=== PATIENT | female | born 1960 | race Caucasian/White ===

== ENCOUNTER 2018-09-08 11:54 | Emergency (ER) | payer OTHER ==
[~2018-09-08] VITALS: Ht 177.8 cm; Wt 82.1 kg
[2018-09-08 12:47] LABS: BASOPHILS ABSOLUTE AUTO 0.03 K/mm3 (0.00-0.23); BASOPHILS PERCENT AUTO 1 % (0-2); EOSINOPHILS ABSOLUTE AUTO 0.31 K/mm3 (0.00-0.68); EOSINOPHILS PERCENT AUTO 6 % (0-6); Hematocrit 39.3 % (33.0-51.0); IMMATURE GRAN ABSOLUTE AUTO 0.01 K/mm3 (0.00-0.10); IMMATURE GRAN PERCENT AUTO 0 % (0-1); LYMPHOCYTES ABSOLUTE AUTO 1.47 K/mm3 (0.84-5.20); LYMPHOCYTES PERCENT AUTO 29 % (21-46); MONOCYTES ABSOLUTE AUTO 0.48 K/mm3 (0.16-1.47); MONOCYTES PERCENT AUTO 10 % (4-13); Mean Corpuscular HGB 31.2 pg (26.0-34.0); Mean Corpuscular HGB Conc 33.1 g/dL (31.5-36.5); Mean Corpuscular Volume 94 fL (80-100); Mean Platelet Volume 9.5 fL (9.1-12.4); NEUTROPHILS ABSOLUTE AUTO 2.75 K/mm3 (1.96-9.15); NEUTROPHILS PERCENT AUTO 55 % (41-73); Platelet Count 226 K/mm3 (150-400); RDW Coefficient Variation 12.6 % (11.7-14.2); Red Blood Cell Count 4.17 M/mm3 (3.80-5.20); White Blood Cell Count 5.05 K/mm3 (4.00-11.30)
[2018-09-08 13:09] LABS: Alanine Aminotransfer (ALT/SGP 104 U/L (12-78); Albumin, Blood 3.7 g/dL (3.4-5.0); Albumin/Globulin Ratio 1.1 (0.8-1.8); Alk Phos 97 U/L (50-136); Anion Gap 8 mmol/L (6-16); Aspartate Aminotrans (AST/SGOT 58 U/L (12-37); Bilirubin, Total 0.4 mg/dL (0.1-1.0); Blood Urea Nitrogen 13 mg/dL (8-24); Bun/Creatinine Ratio 13.7 (12.0-20.0); CO2, Blood 26 mmol/L (21-32); Calcium, Blood 8.6 mg/dL (8.5-10.1); Chloride, Blood 106 mmol/L (98-108); Creatinine, Blood 0.95 mg/dL (0.40-1.00); Globulin, Blood 3.4 g/dL (2.2-4.0); Glomerular Filtration Rate >60 (60-); Glucose, Blood 95 mg/dL (70-99); Potassium, Blood 4.2 mmol/L (3.5-5.5); Sodium, Blood 140 mmol/L (136-145); Total Protein, Blood 7.1 g/dL (6.4-8.2)
[2018-09-08] MEDS ORDERED: Omeprazole20 M1 PO (14:45)
[2018-09-08] MEDS ORDERED: AMIT50 PO (14:45)
[2018-09-08] MEDS ORDERED: WELLBUTRIN (14:46)
[2018-09-08] MEDS ORDERED: MIRALAX17 GM PO (16:17)
[2018-09-08] MEDS ORDERED: Kristalose20 GM PO (16:17)
== END 2018-09-08 16:52 | disposition home or self-care (01) ==
LOC: ER 11:54
PROVIDERS: Physician Assistant
DX: K59.09 Other constipation (principal); Z79.899 Other long term (current) drug therapy; Z87.891 Personal history of nicotine dependence
CPT/HCPCS: 36415; 74018; 80053; 85025; 96374; 99283-25; J2405

== ENCOUNTER 2018-09-16 00:24 | Inpatient (IN) | payer OTHER ==
[~2018-09-16] VITALS: Ht 177.8 cm; Wt 83.2 kg
[~2018-09-16 00:24] MED LIST: AMIT50 PO; Kristalose20 GM PO; MIRALAX17 GM PO; Omeprazole20 M1 PO; WELLBUTRIN
[2018-09-16] MEDS ORDERED: CLON.5 (00:36)
[2018-09-16 00:57] LABS: Hematocrit 31.8 % (33.0-51.0); Hemoglobin 10.9 g/dL (11.5-16.0); Mean Corpuscular HGB 31.5 pg (26.0-34.0); Mean Corpuscular HGB Conc 34.3 g/dL (31.5-36.5); Mean Corpuscular Volume 92 fL (80-100); Mean Platelet Volume 10.4 fL (9.1-12.4); Platelet Count 119 K/mm3 (150-400); RDW Coefficient Variation 13.2 % (11.7-14.2); RDW Standard Deviation 44.7 fL (35.1-46.3); Red Blood Cell Count 3.46 M/mm3 (3.80-5.20)
[2018-09-16 01:18] LABS: Acetaminophen, Random 3.3 ug/mL (10.0-30.0); Alanine Aminotransfer (ALT/SGP 63 U/L (12-78); Albumin, Blood 2.3 g/dL (3.4-5.0); Albumin/Globulin Ratio 0.5 (0.8-1.8); Alk Phos 154 U/L (50-136); Anion Gap 13 mmol/L (6-16); Aspartate Aminotrans (AST/SGOT 45 U/L (12-37); Blood Urea Nitrogen 56 mg/dL (8-24); Bun/Creatinine Ratio 15.1 (12.0-20.0); CO2, Blood 20 mmol/L (21-32); Calcium, Blood 7.8 mg/dL (8.5-10.1); Chloride, Blood 94 mmol/L (98-108); Creatinine, Blood 3.72 mg/dL (0.40-1.00); Ethanol (Alcohol), Blood, Med <3 mg/dL; Globulin, Blood 4.2 g/dL (2.2-4.0); Glomerular Filtration Rate 13 (60-); Glucose, Blood 95 mg/dL (70-99); Potassium, Blood 3.8 mmol/L (3.5-5.5); Salicylate 3.8 mg/dL (2.8-20.0); Sodium, Blood 127 mmol/L (136-145); Total Protein, Blood 6.5 g/dL (6.4-8.2)
[2018-09-16 01:20] LABS: BAND PERCENT MAN 4 % (0-8); BASOPHILS PERCENT MAN 0 % (0-2); EOSINOPHILS PERCENT MAN 1 % (0-6); LYMPHOCYTES ABSOLUTE MAN 0.31 K/mm3 (0.84-5.20); LYMPHOCYTES PERCENT MAN 3 % (21-46); MONOCYTES ABSOLUTE MAN 0.84 K/mm3 (0.16-1.47); MONOCYTES PERCENT MAN 8 % (4-13); NEUTROPHILS ABSOLUTE MAN 9.32 K/mm3 (1.96-9.15); SEG NEUTROPHILS PERCENT MAN 84 % (41-73); TOTAL CELLS COUNTED 100
[2018-09-16 02:12] LABS: Source, Urine Clean Catch
[2018-09-16 02:15] LABS: Appearance, Urine Hazy (Clear); Bilirubin, Urine Neg (Neg); Blood, Urine 3+ (Neg); Color, Urine Yellow (P-Yellow); Glucose Qualitative, Urine Neg (Neg); Ketones, Urine Neg (Neg); Leukocyte Esterase, Urine 3+ (Neg); Nitrite, Urine Neg (Neg); Protein, Urine 3+ (Neg); Urobilinogen, Urine 1+ (Normal)
[2018-09-16 02:24] LABS: Amorphous Heavy (0-Heavy); Bacteria Few /hpf; Red Blood Cells, Urine 0-2 /hpf (0-2); Squamous Epithelial Cells Not Seen /hpf (Few); White Blood Cells, Urine 25-50 /hpf (0-5)
[2018-09-16 02:26] LABS: U Amphetamine Screen Not Detected; U Barbituate Screen Not Detected; U Benzodiazapine Screen Not Detected; U Buprenorphine Screen Not Detected; U Cannabinoids Screen Not Detected; U Cocaine Screen Not Detected; U Methadone Screen Not Detected; U Methamphetamine Screen Not Detected; U Opiates Screen Not Detected; U Oxycodone Screen Not Detected; U Phencyclidine Screen Not Detected; U Propoxyphene Screen Not Detected
[2018-09-16 04:24] LABS: Hemoglobin 11.1 g/dL (11.5-16.0); Mean Corpuscular HGB 31.5 pg (26.0-34.0); Mean Corpuscular HGB Conc 33.6 g/dL (31.5-36.5); Mean Corpuscular Volume 94 fL (80-100); Mean Platelet Volume 10.5 fL (9.1-12.4); Platelet Count 119 K/mm3 (150-400); RDW Coefficient Variation 13.5 % (11.7-14.2); RDW Standard Deviation 46.3 fL (35.1-46.3); Red Blood Cell Count 3.52 M/mm3 (3.80-5.20); White Blood Cell Count 8.42 K/mm3 (4.00-11.30)
[2018-09-16 04:36] LABS: International Normalized Ratio 1.11; Prothrombin Time Results 11.7 Sec (9.7-11.5)
[2018-09-16 04:42] LABS: Albumin, Blood 2.5 g/dL (3.4-5.0); Albumin/Globulin Ratio 0.6 (0.8-1.8); Bun/Creatinine Ratio 15.2 (12.0-20.0); Creatinine, Blood 3.75 mg/dL (0.40-1.00); Globulin, Blood 4.4 g/dL (2.2-4.0); Potassium, Blood 3.7 mmol/L (3.5-5.5); Total Protein, Blood 6.9 g/dL (6.4-8.2)
[2018-09-16 09:20] LABS: Magnesium, Blood 2.1 mg/dL (1.6-2.4)
[2018-09-16 09:25] LABS: Troponin I <0.015 ng/mL (0.000-0.040)
[2018-09-16 15:50] LABS: Albumin, Blood 2.2 g/dL (3.4-5.0); Anion Gap 13 mmol/L (6-16); Blood Urea Nitrogen 58 mg/dL (8-24); Bun/Creatinine Ratio 15.6 (12.0-20.0); CO2, Blood 18 mmol/L (21-32); Calcium, Blood 7.7 mg/dL (8.5-10.1); Chloride, Blood 99 mmol/L (98-108); Creatinine, Blood 3.71 mg/dL (0.40-1.00); Glomerular Filtration Rate 13 (60-); Glucose, Blood 67 mg/dL (70-99); Phosphorus, Blood 3.6 mg/dL (2.5-4.9); Potassium, Blood 4.2 mmol/L (3.5-5.5); Sodium, Blood 130 mmol/L (136-145)
[2018-09-17 04:21] LABS: BASOPHILS ABSOLUTE AUTO 0.02 K/mm3 (0.00-0.23); BASOPHILS PERCENT AUTO 0 % (0-2); EOSINOPHILS ABSOLUTE AUTO 0.16 K/mm3 (0.00-0.68); EOSINOPHILS PERCENT AUTO 2 % (0-6); Hematocrit 31.3 % (33.0-51.0); Hemoglobin 10.4 g/dL (11.5-16.0); IMMATURE GRAN ABSOLUTE AUTO 0.32 K/mm3 (0.00-0.10); IMMATURE GRAN PERCENT AUTO 4 % (0-1); LYMPHOCYTES ABSOLUTE AUTO 0.42 K/mm3 (0.84-5.20); LYMPHOCYTES PERCENT AUTO 5 % (21-46); MONOCYTES PERCENT AUTO 7 % (4-13); Mean Corpuscular HGB 30.9 pg (26.0-34.0); Mean Corpuscular HGB Conc 33.2 g/dL (31.5-36.5); Mean Corpuscular Volume 93 fL (80-100); Mean Platelet Volume 10.2 fL (9.1-12.4); NEUTROPHILS ABSOLUTE AUTO 7.62 K/mm3 (1.96-9.15); NEUTROPHILS PERCENT AUTO 83 % (41-73); Platelet Count 127 K/mm3 (150-400); RDW Coefficient Variation 13.8 % (11.7-14.2); RDW Standard Deviation 46.6 fL (35.1-46.3); Red Blood Cell Count 3.37 M/mm3 (3.80-5.20); White Blood Cell Count 9.14 K/mm3 (4.00-11.30)
[2018-09-17 04:43] LABS: Albumin, Blood 2.1 g/dL (3.4-5.0); Albumin/Globulin Ratio 0.6 (0.8-1.8); Bilirubin, Total 0.9 mg/dL (0.1-1.0); Bun/Creatinine Ratio 16.3 (12.0-20.0); Calcium, Blood 7.4 mg/dL (8.5-10.1); Creatinine, Blood 3.63 mg/dL (0.40-1.00); Globulin, Blood 3.7 g/dL (2.2-4.0); Potassium, Blood 3.3 mmol/L (3.5-5.5); Total Protein, Blood 5.8 g/dL (6.4-8.2)
[2018-09-17 07:14] LABS: HBSAG SCREEN Negative (Negative); HEP A AB, IGM Negative (Negative); HEP B CORE AB, IGM Negative (Negative); HEP B CORE AB, TOT Negative (Negative); HEP C VIRUS AB >11.0 (0.0-0.9)
[2018-09-18 05:20] LABS: Bun/Creatinine Ratio 15.4 (12.0-20.0); Calcium, Blood 7.6 mg/dL (8.5-10.1); Creatinine, Blood 3.58 mg/dL (0.40-1.00); Potassium, Blood 3.4 mmol/L (3.5-5.5)
[2018-09-19 05:26] LABS: BASOPHILS ABSOLUTE AUTO 0.05 K/mm3 (0.00-0.23); BASOPHILS PERCENT AUTO 0 % (0-2); EOSINOPHILS ABSOLUTE AUTO 0.12 K/mm3 (0.00-0.68); EOSINOPHILS PERCENT AUTO 1 % (0-6); Hematocrit 29.2 % (33.0-51.0); Hemoglobin 9.9 g/dL (11.5-16.0); IMMATURE GRAN ABSOLUTE AUTO 0.69 K/mm3 (0.00-0.10); IMMATURE GRAN PERCENT AUTO 5 % (0-1); LYMPHOCYTES ABSOLUTE AUTO 0.91 K/mm3 (0.84-5.20); LYMPHOCYTES PERCENT AUTO 6 % (21-46); MONOCYTES ABSOLUTE AUTO 0.81 K/mm3 (0.16-1.47); MONOCYTES PERCENT AUTO 5 % (4-13); Mean Corpuscular HGB 31.1 pg (26.0-34.0); Mean Corpuscular HGB Conc 33.9 g/dL (31.5-36.5); Mean Corpuscular Volume 92 fL (80-100); Mean Platelet Volume 9.5 fL (9.1-12.4); NEUTROPHILS ABSOLUTE AUTO 12.75 K/mm3 (1.96-9.15); NEUTROPHILS PERCENT AUTO 83 % (41-73); Platelet Count 190 K/mm3 (150-400); RDW Coefficient Variation 14.2 % (11.7-14.2); RDW Standard Deviation 48.3 fL (35.1-46.3); Red Blood Cell Count 3.18 M/mm3 (3.80-5.20); White Blood Cell Count 15.33 K/mm3 (4.00-11.30)
[2018-09-19 05:38] LABS: Bun/Creatinine Ratio 14.6 (12.0-20.0); Calcium, Blood 7.7 mg/dL (8.5-10.1); Creatinine, Blood 3.62 mg/dL (0.40-1.00)
[2018-09-19 16:38] LABS: Anion Gap 11 mmol/L (6-16); Blood Urea Nitrogen 48 mg/dL (8-24); Bun/Creatinine Ratio 14.1 (12.0-20.0); CO2, Blood 18 mmol/L (21-32); Calcium, Blood 7.6 mg/dL (8.5-10.1); Chloride, Blood 106 mmol/L (98-108); Creatinine, Blood 3.41 mg/dL (0.40-1.00); Glomerular Filtration Rate 15 (60-); Glucose, Blood 77 mg/dL (70-99); Phosphorus, Blood 3.9 mg/dL (2.5-4.9); Potassium, Blood 3.7 mmol/L (3.5-5.5); Sodium, Blood 135 mmol/L (136-145)
[2018-09-20 05:11] LABS: BASOPHILS ABSOLUTE AUTO 0.05 K/mm3 (0.00-0.23); BASOPHILS PERCENT AUTO 0 % (0-2); EOSINOPHILS ABSOLUTE AUTO 0.18 K/mm3 (0.00-0.68); EOSINOPHILS PERCENT AUTO 1 % (0-6); Hematocrit 28.9 % (33.0-51.0); Hemoglobin 9.6 g/dL (11.5-16.0); IMMATURE GRAN ABSOLUTE AUTO 0.73 K/mm3 (0.00-0.10); IMMATURE GRAN PERCENT AUTO 5 % (0-1); LYMPHOCYTES ABSOLUTE AUTO 1.19 K/mm3 (0.84-5.20); LYMPHOCYTES PERCENT AUTO 8 % (21-46); MONOCYTES ABSOLUTE AUTO 0.74 K/mm3 (0.16-1.47); MONOCYTES PERCENT AUTO 5 % (4-13); Mean Corpuscular HGB 30.8 pg (26.0-34.0); Mean Corpuscular HGB Conc 33.2 g/dL (31.5-36.5); Mean Corpuscular Volume 93 fL (80-100); Mean Platelet Volume 9.4 fL (9.1-12.4); NEUTROPHILS ABSOLUTE AUTO 12.02 K/mm3 (1.96-9.15); NEUTROPHILS PERCENT AUTO 81 % (41-73); Platelet Count 228 K/mm3 (150-400); RDW Coefficient Variation 14.6 % (11.7-14.2); RDW Standard Deviation 49.5 fL (35.1-46.3); Red Blood Cell Count 3.12 M/mm3 (3.80-5.20); White Blood Cell Count 14.91 K/mm3 (4.00-11.30)
[2018-09-20 06:20] LABS: Albumin, Blood 1.8 g/dL (3.4-5.0); Anion Gap 11 mmol/L (6-16); Blood Urea Nitrogen 47 mg/dL (8-24); CO2, Blood 18 mmol/L (21-32); CPK Creatine Kinase 17 U/L (26-193); Calcium, Blood 7.6 mg/dL (8.5-10.1); Chloride, Blood 111 mmol/L (98-108); Glucose, Blood 94 mg/dL (70-99); Magnesium, Blood 2.1 mg/dL (1.6-2.4); Phosphorus, Blood 4.1 mg/dL (2.5-4.9); Potassium, Blood 3.6 mmol/L (3.5-5.5); Sodium, Blood 140 mmol/L (136-145)
[2018-09-20 06:54] LABS: Bun/Creatinine Ratio 13.9 (12.0-20.0); Creatinine, Blood 3.38 mg/dL (0.40-1.00); Glomerular Filtration Rate 15 (60-)
[2018-09-21 05:36] LABS: BASOPHILS ABSOLUTE AUTO 0.03 K/mm3 (0.00-0.23); BASOPHILS PERCENT AUTO 0 % (0-2); EOSINOPHILS ABSOLUTE AUTO 0.06 K/mm3 (0.00-0.68); EOSINOPHILS PERCENT AUTO 0 % (0-6); Hematocrit 27.5 % (33.0-51.0); IMMATURE GRAN ABSOLUTE AUTO 0.68 K/mm3 (0.00-0.10); IMMATURE GRAN PERCENT AUTO 5 % (0-1); LYMPHOCYTES ABSOLUTE AUTO 1.19 K/mm3 (0.84-5.20); LYMPHOCYTES PERCENT AUTO 8 % (21-46); MONOCYTES ABSOLUTE AUTO 0.45 K/mm3 (0.16-1.47); MONOCYTES PERCENT AUTO 3 % (4-13); Mean Corpuscular HGB 30.4 pg (26.0-34.0); Mean Corpuscular HGB Conc 32.7 g/dL (31.5-36.5); Mean Corpuscular Volume 93 fL (80-100); Mean Platelet Volume 9.3 fL (9.1-12.4); NEUTROPHILS ABSOLUTE AUTO 11.94 K/mm3 (1.96-9.15); NEUTROPHILS PERCENT AUTO 83 % (41-73); Platelet Count 234 K/mm3 (150-400); RDW Coefficient Variation 14.6 % (11.7-14.2); RDW Standard Deviation 49.8 fL (35.1-46.3); Red Blood Cell Count 2.96 M/mm3 (3.80-5.20); White Blood Cell Count 14.35 K/mm3 (4.00-11.30)
[2018-09-21 06:04] LABS: Albumin, Blood 1.8 g/dL (3.4-5.0); Anion Gap 11 mmol/L (6-16); Blood Urea Nitrogen 43 mg/dL (8-24); CO2, Blood 18 mmol/L (21-32); Calcium, Blood 7.3 mg/dL (8.5-10.1); Chloride, Blood 110 mmol/L (98-108); Creatinine, Blood 3.08 mg/dL (0.40-1.00); Glomerular Filtration Rate 17 (60-); Glucose, Blood 88 mg/dL (70-99); Phosphorus, Blood 4.7 mg/dL (2.5-4.9); Potassium, Blood 3.8 mmol/L (3.5-5.5); Sodium, Blood 139 mmol/L (136-145)
[2018-09-21 09:23] LABS: Protein, Urine Quantitative 15.9 mg/dL (0.0-11.9)
[2018-09-21] MEDS ORDERED: ACET325 PO (13:22)
[2018-09-21] MEDS ORDERED: BISA10S PR (13:36)
[2018-09-21] MEDS ORDERED: OYSTER SHELL C1 EAC3 PO (13:41)
[2018-09-21] MEDS ORDERED: CEFP200 PO (13:42)
[2018-09-21] MEDS ORDERED: Colace100 MG PO (13:42)
[2018-09-21] MEDS ORDERED: Amitiza24 MCG PO (13:44)
[2018-09-21] MEDS ORDERED: ONDA4ODT MM (13:46)
[2018-09-21] MEDS ORDERED: MIRALAX17 GM PO (13:47)
[2018-09-21] MEDS ORDERED: AZIT500 PO (13:48)
[2018-09-21] MEDS ORDERED: PRED20 PO (13:48)
[2018-09-21] MEDS ORDERED: TRAM50 PO (13:49)
== END 2018-09-21 16:15 | disposition home or self-care (01) | DRG 682 ==
LOC: ER 00:24 → MEDS 02:35 → ICUW 02:35 → MEDS 09-17 10:55
PROVIDERS: Emergency Medicine; Family Medicine; Hospitalist; Internal Medicine Gastroenterology; Internal Medicine Nephrology; ADMIT Internal Medicine
PROC: 0DJD8ZZ Inspection of Lower Intestinal Tract, Via Natural or Artificial Opening Endoscopic (ICD-10-PCS; principal; 2018-09-17 16:00)
DX: N17.0 Acute kidney failure with tubular necrosis (principal); G92 Toxic encephalopathy; J18.9 Pneumonia, unspecified organism; N39.0 Urinary tract infection, site not specified; Q43.8 Other specified congenital malformations of intestine; E87.1 Hypo-osmolality and hyponatremia; E87.2 Acidosis; E86.0 Dehydration; K21.9 Gastro-esophageal reflux disease without esophagitis; K59.00 Constipation, unspecified; K76.0 Fatty (change of) liver, not elsewhere classified; R09.02 Hypoxemia; E88.09 Other disorders of plasma-protein metabolism, not elsewhere classified; Z87.891 Personal history of nicotine dependence; F32.9 Major depressive disorder, single episode, unspecified; R51 Headache; K62.3 Rectal prolapse; G47.00 Insomnia, unspecified; E86.9 Volume depletion, unspecified; B96.20 Unspecified Escherichia coli [E. coli] as the cause of diseases classified elsewhere; D64.9 Anemia, unspecified; Z79.1 Long term (current) use of non-steroidal anti-inflammatories (NSAID); N18.9 Chronic kidney disease, unspecified
CPT/HCPCS: 36415; 51702; 71045; 71046; 74018; 74176; 80048; 80053; 80069; 80074; 81001; 81025; 81050; 82140; 82550; 82947; 83605; 83690; 83735; 84156; 84439; 84443; 84484; 84550; 85014; 85018; 85025; 85027; 85610; 86317; 86704; 86708; 86803; 87070; 87077; 87086; 87147; 87186; 87205; 87340; 90686; 93005; 93010; 99285-25; G0008; G0480; J0456; J0696; J0881; J1650; J1956; J2405; J3010; J3480; J7030; J7050; J7120; P9046

== ENCOUNTER → 2018-09-28 | Outpatient (CLI) | payer OTHER ==
[~2018-09-28] MED LIST changes: +ACET325 PO; +AZIT500 PO; +Amitiza24 MCG PO; +BISA10S PR; +CEFP200 PO; +CLON.5; +Colace100 MG PO; +ONDA4ODT MM; +OYSTER SHELL C1 EAC3 PO; +PRED20 PO; +TRAM50 PO
[2018-09-28 11:07] LABS: Protein, Urine Quantitative 14.4 mg/dL (0.0-11.9)
== END | disposition home or self-care (01) ==
LOC: LAB SHORT 09:46 → LAB 09:46 → LAB FUT 09-24 14:55
PROVIDERS: Internal Medicine Nephrology
DX: N18.4 Chronic kidney disease, stage 4 (severe) (principal); D63.1 Anemia in chronic kidney disease; N25.81 Secondary hyperparathyroidism of renal origin; E55.9 Vitamin D deficiency, unspecified; E78.00 Pure hypercholesterolemia, unspecified; D51.8 Other vitamin B12 deficiency anemias; D52.8 Other folate deficiency anemias; D50.9 Iron deficiency anemia, unspecified; R76.9 Abnormal immunological finding in serum, unspecified; R94.5 Abnormal results of liver function studies; R94.6 Abnormal results of thyroid function studies
CPT/HCPCS: 81050; 82043; 82570; 84156

== ENCOUNTER 2018-10-03 14:54 | Emergency (ER) | payer OTHER ==
[~2018-10-03] VITALS: Ht 177.8 cm; Wt 81.7 kg
[2018-10-03 16:29] LABS: BASOPHILS ABSOLUTE AUTO 0.05 K/mm3 (0.00-0.23); BASOPHILS PERCENT AUTO 1 % (0-2); EOSINOPHILS ABSOLUTE AUTO 0.12 K/mm3 (0.00-0.68); EOSINOPHILS PERCENT AUTO 2 % (0-6); Hematocrit 40.1 % (33.0-51.0); Hemoglobin 12.4 g/dL (11.5-16.0); IMMATURE GRAN ABSOLUTE AUTO 0.03 K/mm3 (0.00-0.10); IMMATURE GRAN PERCENT AUTO 1 % (0-1); LYMPHOCYTES ABSOLUTE AUTO 2.75 K/mm3 (0.84-5.20); LYMPHOCYTES PERCENT AUTO 44 % (21-46); MONOCYTES ABSOLUTE AUTO 0.64 K/mm3 (0.16-1.47); MONOCYTES PERCENT AUTO 10 % (4-13); Mean Corpuscular HGB 30.3 pg (26.0-34.0); Mean Corpuscular HGB Conc 30.9 g/dL (31.5-36.5); Mean Platelet Volume 8.8 fL (9.1-12.4); NEUTROPHILS ABSOLUTE AUTO 2.61 K/mm3 (1.96-9.15); NEUTROPHILS PERCENT AUTO 42 % (41-73); Platelet Count 309 K/mm3 (150-400); RDW Coefficient Variation 14.1 % (11.7-14.2); Red Blood Cell Count 4.09 M/mm3 (3.80-5.20)
[2018-10-03 16:32] LABS: Mean Corpuscular Volume 98 fL (80-100)
[2018-10-03 16:36] LABS: Albumin, Blood 3.6 g/dL (3.4-5.0); Albumin/Globulin Ratio 0.8 (0.8-1.8); Bilirubin, Total 0.4 mg/dL (0.1-1.0); Bun/Creatinine Ratio 12.9 (12.0-20.0); Calcium, Blood 8.9 mg/dL (8.5-10.1); Creatinine, Blood 1.71 mg/dL (0.40-1.00); Globulin, Blood 4.8 g/dL (2.2-4.0); Potassium, Blood 3.6 mmol/L (3.5-5.5); Total Protein, Blood 8.4 g/dL (6.4-8.2)
[2018-10-03 16:59] LABS: Source, Urine Clean Catch
[2018-10-03 17:04] LABS: Appearance, Urine Clear (Clear); Bilirubin, Urine Neg (Neg); Blood, Urine Neg (Neg); Color, Urine Yellow (P-Yellow); Glucose Qualitative, Urine Neg (Neg); Ketones, Urine Neg (Neg); Leukocyte Esterase, Urine 1+ (Neg); Nitrite, Urine Neg (Neg); Protein, Urine Neg (Neg); Specific Gravity, Urine 1.015 (1.003-1.022); Urobilinogen, Urine NORM (Normal)
[2018-10-03 17:16] LABS: Red Blood Cells, Urine Not Seen /hpf (0-2); White Blood Cells, Urine 0-2 /hpf (0-5)
[2018-10-03 17:17] LABS: Bacteria Not Seen /hpf; Squamous Epithelial Cells Few /hpf (Few)
== END 2018-10-03 18:30 | disposition home or self-care (01) ==
LOC: ER 14:54
PROVIDERS: Physician Assistant
DX: R55 Syncope and collapse (principal); Z79.899 Other long term (current) drug therapy; Z87.891 Personal history of nicotine dependence
CPT/HCPCS: 36415; 71046; 80053; 81001; 84484; 85025; 87077; 87086; 87186; 93005; 93010; 96360; 96361; 99284-25; J7030

== ENCOUNTER 2018-10-22 13:53 | Day surgery (SDC) | payer OTHER ==
[2018-10-23] MEDS ORDERED: OXYC5 PO (13:50)
[2018-10-23] MEDS ORDERED: Budeprion Xl300 MG (13:50)
[2018-10-23] MEDS ORDERED: CALC.25 PO (13:51)
[2018-10-23] MEDS ORDERED: MOTION RELIEF25 MG PO (13:51)
== END 2018-10-22 16:20 | disposition home or self-care (01) ==
LOC: ATC 13:53
DX: I95.9 Hypotension, unspecified (principal); R55 Syncope and collapse; K59.09 Other constipation; M54.12 Radiculopathy, cervical region; M79.12 Myalgia of auxiliary muscles, head and neck; N18.9 Chronic kidney disease, unspecified; E83.119 Hemochromatosis, unspecified; R09.02 Hypoxemia; G47.00 Insomnia, unspecified; Z79.899 Other long term (current) drug therapy; E87.6 Hypokalemia; E87.1 Hypo-osmolality and hyponatremia; Z87.891 Personal history of nicotine dependence
CPT/HCPCS: 96360; 96361; J7042

== ENCOUNTER 2018-10-23 13:09 | Emergency (ER) | payer OTHER ==
[~2018-10-23] VITALS: Ht 177.8 cm; Wt 80.3 kg
[2018-10-23] MEDS ORDERED: Budeprion Xl300 MG (13:50)
[2018-10-23] MEDS ORDERED: OXYC5 PO (13:50)
[2018-10-23] MEDS ORDERED: CALC.25 PO (13:51)
[2018-10-23] MEDS ORDERED: MOTION RELIEF25 MG PO (13:51)
[2018-10-23 15:59] LABS: BASOPHILS ABSOLUTE AUTO 0.05 K/mm3 (0.00-0.23); BASOPHILS PERCENT AUTO 1 % (0-2); EOSINOPHILS ABSOLUTE AUTO 0.19 K/mm3 (0.00-0.68); EOSINOPHILS PERCENT AUTO 2 % (0-6); Hematocrit 32.8 % (33.0-51.0); Hemoglobin 10.6 g/dL (11.5-16.0); IMMATURE GRAN ABSOLUTE AUTO 0.06 K/mm3 (0.00-0.10); IMMATURE GRAN PERCENT AUTO 1 % (0-1); LYMPHOCYTES ABSOLUTE AUTO 1.69 K/mm3 (0.84-5.20); LYMPHOCYTES PERCENT AUTO 18 % (21-46); MONOCYTES ABSOLUTE AUTO 0.56 K/mm3 (0.16-1.47); MONOCYTES PERCENT AUTO 6 % (4-13); Mean Corpuscular HGB 29.9 pg (26.0-34.0); Mean Corpuscular HGB Conc 32.3 g/dL (31.5-36.5); Mean Corpuscular Volume 93 fL (80-100); Mean Platelet Volume 9.7 fL (9.1-12.4); NEUTROPHILS ABSOLUTE AUTO 6.71 K/mm3 (1.96-9.15); NEUTROPHILS PERCENT AUTO 73 % (41-73); Platelet Count 207 K/mm3 (150-400); RDW Coefficient Variation 13.2 % (11.7-14.2); RDW Standard Deviation 45.2 fL (35.1-46.3); Red Blood Cell Count 3.54 M/mm3 (3.80-5.20); White Blood Cell Count 9.26 K/mm3 (4.00-11.30)
[2018-10-23 16:23] LABS: Albumin, Blood 3.3 g/dL (3.4-5.0); Albumin/Globulin Ratio 0.8 (0.8-1.8); Bilirubin, Total 0.4 mg/dL (0.1-1.0); Bun/Creatinine Ratio 11.9 (12.0-20.0); Calcium, Blood 8.2 mg/dL (8.5-10.1); Creatinine, Blood 1.26 mg/dL (0.40-1.00); Globulin, Blood 3.9 g/dL (2.2-4.0); Potassium, Blood 3.9 mmol/L (3.5-5.5); Total Protein, Blood 7.2 g/dL (6.4-8.2)
== END 2018-10-23 17:09 | disposition home or self-care (01) ==
LOC: ER 13:09
PROVIDERS: Physician Assistant
DX: R55 Syncope and collapse (principal); Z79.899 Other long term (current) drug therapy; J44.9 Chronic obstructive pulmonary disease, unspecified; Z87.891 Personal history of nicotine dependence
CPT/HCPCS: 80053; 85025; 93005; 93010; 99284-25

== ENCOUNTER 2018-10-24 09:55 | Day surgery (SDC) | payer OTHER ==
[~2018-10-24 09:55] MED LIST changes: +Budeprion Xl300 MG; +CALC.25 PO; +MOTION RELIEF25 MG PO; +OXYC5 PO
== END 2018-10-24 12:03 | disposition home or self-care (01) ==
LOC: ATC 09:55
DX: I95.9 Hypotension, unspecified (principal); R55 Syncope and collapse; K59.09 Other constipation; M54.12 Radiculopathy, cervical region; M79.12 Myalgia of auxiliary muscles, head and neck; N18.9 Chronic kidney disease, unspecified; E83.119 Hemochromatosis, unspecified; R09.02 Hypoxemia; G47.00 Insomnia, unspecified; Z79.899 Other long term (current) drug therapy; E87.6 Hypokalemia; E87.1 Hypo-osmolality and hyponatremia; Z87.891 Personal history of nicotine dependence
CPT/HCPCS: 96360; 96361; J7042

== ENCOUNTER → 2018-11-26 | Outpatient (CLI) | payer OTHER | END | disposition home or self-care (01) | LOC: LAB SHORT 17:13 → LAB 17:13 | DX: N18.9 Chronic kidney disease, unspecified (principal) | CPT/HCPCS: 87077; 87086; 87186 ==

== ENCOUNTER → 2018-12-16 | Outpatient (CLI) | payer OTHER | END | disposition home or self-care (01) | LOC: LAB 18:07 → LAB SHORT 18:07 | DX: N39.0 Urinary tract infection, site not specified (principal); N18.9 Chronic kidney disease, unspecified; N08 Glomerular disorders in diseases classified elsewhere | CPT/HCPCS: 87086 ==

== ENCOUNTER → 2019-01-13 | Outpatient (CLI) | payer OTHER ==
[2019-01-17 15:07] LABS: HPV 16 Negative (Negative); HPV 18 Negative (Negative); HPV OTHER HR TYPES Negative (Negative)
== END | disposition home or self-care (01) ==
LOC: LAB SHORT 10:20 → LAB 10:20
PROVIDERS: Nurse Practitioner Family
DX: Z01.419 Encounter for gynecological examination (general) (routine) without abnormal findings (principal)
CPT/HCPCS: 87624; G0123

== ENCOUNTER → 2019-01-17 | Outpatient (CLI) | payer OTHER | END | disposition home or self-care (01) | LOC: LAB 16:14 → LAB SHORT 16:14 | DX: N39.0 Urinary tract infection, site not specified (principal) | CPT/HCPCS: 87086 ==

== ENCOUNTER → 2019-07-01 | Outpatient (CLI) | payer OTHER | END | disposition home or self-care (01) | LOC: LAB 12:00 → LAB SHORT 12:00 | DX: K12.1 Other forms of stomatitis (principal) | CPT/HCPCS: 87070; 87075; 87077; 87186; 87205 ==

== ENCOUNTER 2020-01-12 12:01 | Emergency (ER) | payer OTHER ==
[~2020-01-12] VITALS: Ht 167.6 cm; Wt 68.0 kg
[2020-01-12] MEDS ORDERED: MIDO5 PO (12:20)
[2020-01-12] MEDS ORDERED: OXYC5 PO (12:20)
[2020-01-12] MEDS ORDERED: BACL10 PO (12:21)
[2020-01-12] MEDS ORDERED: Flonase 0.05% N16 GM (12:22)
[2020-01-17 08:30] LABS: Calcium, Ionized (POC) 1.17 mmol/L (1.10-1.46); Chloride (POC) 106 mmol/L (98-108); Creatinine (POC) 1.2 mg/dL (0.6-1.0); Glucose (ISTAT POC) 101 mg/dL (70-99); Hemoglobin (POC) 12.2 g/dL (12.0-16.0); Potassium (POC) 3.4 mmol/L (3.5-5.5); Sodium (POC) 140 mmol/L (135-148); Total CO2 (POC) 23 mmol/L (21-32)
== END 2020-01-12 16:57 | disposition home or self-care (01) ==
LOC: ER 12:01
PROVIDERS: Emergency Medicine
DX: R41.82 Altered mental status, unspecified (principal); M10.9 Gout, unspecified; K21.9 Gastro-esophageal reflux disease without esophagitis; N19 Unspecified kidney failure; Z87.01 Personal history of pneumonia (recurrent); Z79.899 Other long term (current) drug therapy; Z87.891 Personal history of nicotine dependence
CPT/HCPCS: 80047; 85014; 96361; 96374; 96375; 99284-25; J1200; J2550; J7030

== ENCOUNTER 2023-01-20 08:07 | Day surgery (SDC) | payer OTHER ==
[~2023-01-20] VITALS: Ht 177.8 cm; Wt 68.9 kg
[2023-01-20] VITALS (17 sets, daily range): BP systolic 112–154; BP diastolic 66–121
[~2023-01-20 08:07] MED LIST changes: +BACL10 PO; +DEXT10ER PO; +FLUDROCORTISON0.1 M1 PO; +Flonase 0.05% N16 GM; +LISI20 PO; +Loratadine10 MG PO; +METO25ER PO; +MIDO5 PO; +NARCAN4 M1; +OXYC10ER PO; +PANT40 PO; +QUET100 PO; +ROSU10TA PO
--- NOTE | 2023-01-20 08:43 | NUR ---
History, Chart, Medications and Allergies reviewed before start of procedure. Patient States Post-Procedure ride home has been arranged.
--- NOTE | 2023-01-20 09:09 | NUR ---
01/20/23 0909 Lea Fletcher HISTORY, CHART, MEDICATIONS AND ALLERGIES REVIEWED BEFORE START OF PROCEDURE. PATIENT CONFIRMS NPO STATUS AND AGREES WITH SCHEDULED PROCEDURE. 3-LEAD EKG REVIEWED WITH PHYSICIAN PRIOR TO START OF PROCEDURE. MONITOR INTACT WITH CONTINUOUS PULSE OXIMETRY,CAPNOGRAPHY, 3-LEAD EKG, INTERMITTENT BP. SUPPLEMENTAL O2 TO BE TITRATED THROUGHOUT PROCEDURE TO MAINTAIN O2 SATURATION ABOVE 90%. PATIENT DETERMINED TO BE ASA APPROPRIATE FOR PROPOFOL SEDATION PRIOR TO START OF PROCEDURE BY .
--- NOTE | 2023-01-20 09:35 | NUR ---
Discharge instructions reviewed with patient. Patient verbalizes understanding. Copy given to patient to take home. Discharged via wheelchair to private car for ride home.
== END 2023-01-20 09:35 | disposition home or self-care (01) ==
LOC: ORSCMMR 08:07 → ORD 09:00 → ORSCMMR 09:00
PROVIDERS: Internal Medicine Gastroenterology
PROC: 0DBM8ZX Excision of Descending Colon, Via Natural or Artificial Opening Endoscopic, Diagnostic (ICD-10-PCS; principal; 2023-01-20 09:00)
DX: K62.5 Hemorrhage of anus and rectum (principal); R19.5 Other fecal abnormalities; K63.5 Polyp of colon; K63.89 Other specified diseases of intestine; K59.09 Other constipation; G47.30 Sleep apnea, unspecified; E87.1 Hypo-osmolality and hyponatremia; I10 Essential (primary) hypertension; K21.9 Gastro-esophageal reflux disease without esophagitis; Z79.899 Other long term (current) drug therapy
CPT/HCPCS: 88305; J0461; J2704; J7120

== ENCOUNTER 2024-09-20 18:48 | Inpatient (IN) | payer OTHER ==
[~2024-09-20] VITALS: Ht 177.8 cm; Wt 64.5 kg
[~2024-09-20 18:48] MED LIST changes: -ANORO ELLIPTA1 EAC1 INH; -Amphetamine Sal20 MG PO; -METOPROLOL SUCC25 MG PO; -Methocarbamol750 MG PO
[2024-09-20] MEDS ORDERED: NS 1,000 ML IV SCH (22:55)
[2024-09-20] MEDS ORDERED: Ketorolac Tromethamine 15mg Vial IV ONE (22:55)
[2024-09-20 23:47] LABS: Influenza A, PCR NEGATIVE (NEGATIVE); Influenza B, PCR NEGATIVE (NEGATIVE); Resp Syncytial Virus, PCR NEGATIVE (NEGATIVE); SARS-Cov-2 (COVID-19) PCR, MMC NEGATIVE (NEGATIVE)
[2024-09-20 23:54] LABS: BASOPHILS ABSOLUTE AUTO 0.02 K/mm3 (0.00-0.23); BASOPHILS PERCENT AUTO 0 % (0-2); EOSINOPHILS PERCENT AUTO 0 % (0-6); Hematocrit 26.6 % (33.0-51.0); Hemoglobin 9.3 g/dL (11.5-16.0); IMMATURE GRAN ABSOLUTE AUTO 0.11 K/mm3 (0.00-0.10); IMMATURE GRAN PERCENT AUTO 1 % (0-1); LYMPHOCYTES ABSOLUTE AUTO 0.65 K/mm3 (0.84-5.20); LYMPHOCYTES PERCENT AUTO 5 % (21-46); MONOCYTES ABSOLUTE AUTO 0.85 K/mm3 (0.16-1.47); MONOCYTES PERCENT AUTO 6 % (4-13); Mean Corpuscular HGB 30.1 pg (26.0-34.0); Mean Corpuscular Volume 86 fL (80-100); Mean Platelet Volume 8.8 fL (9.1-12.4); NEUTROPHILS ABSOLUTE AUTO 12.42 K/mm3 (1.96-9.15); NEUTROPHILS PERCENT AUTO 89 % (41-73); Platelet Count 454 K/mm3 (150-400); RDW Coefficient Variation 14.1 % (11.7-14.2); RDW Standard Deviation 44.6 fL (35.1-46.3); Red Blood Cell Count 3.09 M/mm3 (3.80-5.20); White Blood Cell Count 14.05 K/mm3 (4.00-11.30)
[2024-09-21 00:12] LABS: Albumin, Blood 1.9 g/dL (3.4-5.0); Albumin/Globulin Ratio 0.4 (0.8-1.8); Bilirubin, Total 0.7 mg/dL (0.1-1.0); Bun/Creatinine Ratio 16.9 (12.0-20.0); Calcium, Blood 8.6 mg/dL (8.5-10.1); Creatinine, Blood 0.83 mg/dL (0.40-1.00); Globulin, Blood 5.1 g/dL (2.2-4.0); Potassium, Blood 3.6 mmol/L (3.5-5.5)
[2024-09-21 00:58] LABS: Source, Urine Clean Catch
[2024-09-21 01:01] LABS: Bilirubin, Urine Neg (Neg); Blood, Urine 1+ (Neg); Glucose Qualitative, Urine Neg (Neg); Ketones, Urine Neg (Neg); Leukocyte Esterase, Urine 3+ (Neg); Nitrite, Urine Pos (Neg); Protein, Urine 3+ (Neg); Urobilinogen, Urine 2+ (Normal)
[2024-09-21 01:10] LABS: Appearance, Urine Cloudy (Clear); Color, Urine Yellow (P-Yellow)
[2024-09-21] MEDS ORDERED: Acetaminophen 325 MG TABLET PO ONE (01:10)
[2024-09-21 01:12] LABS: Red Blood Cells, Urine 0-2 /hpf (0-2); White Blood Cells, Urine 50-100 /hpf (0-5)
[2024-09-21 01:13] LABS: Bacteria Many /hpf; Squamous Epithelial Cells Mod /hpf (Few)
[2024-09-21] MEDS ORDERED: CefTRIAXone Sodium 2,000 MG in NS 100 ML IV ONE (01:35)
[2024-09-21] MEDS ORDERED: TraMADol HCl 50 MG Tab PO ONE (03:00)
[2024-09-21] MEDS ORDERED: FLU VACC TS2024-25(6MOS UP)/PF 45 MCG/0.5 ML SYRINGE IM ONE (03:10)
[2024-09-21] MEDS ORDERED: NS 1,000 ML IV SCH (03:10)
[2024-09-21 05:29] LABS: BASOPHILS ABSOLUTE AUTO 0.03 K/mm3 (0.00-0.23); BASOPHILS PERCENT AUTO 0 % (0-2); EOSINOPHILS ABSOLUTE AUTO 0.01 K/mm3 (0.00-0.68); EOSINOPHILS PERCENT AUTO 0 % (0-6); Hematocrit 25.5 % (33.0-51.0); Hemoglobin 8.5 g/dL (11.5-16.0); IMMATURE GRAN ABSOLUTE AUTO 0.07 K/mm3 (0.00-0.10); IMMATURE GRAN PERCENT AUTO 1 % (0-1); LYMPHOCYTES ABSOLUTE AUTO 0.97 K/mm3 (0.84-5.20); LYMPHOCYTES PERCENT AUTO 9 % (21-46); MONOCYTES PERCENT AUTO 7 % (4-13); Mean Corpuscular HGB 29.5 pg (26.0-34.0); Mean Corpuscular HGB Conc 33.3 g/dL (31.5-36.5); Mean Corpuscular Volume 89 fL (80-100); Mean Platelet Volume 8.8 fL (9.1-12.4); NEUTROPHILS ABSOLUTE AUTO 9.18 K/mm3 (1.96-9.15); NEUTROPHILS PERCENT AUTO 83 % (41-73); Platelet Count 379 K/mm3 (150-400); RDW Coefficient Variation 14.3 % (11.7-14.2); RDW Standard Deviation 45.9 fL (35.1-46.3); Red Blood Cell Count 2.88 M/mm3 (3.80-5.20); White Blood Cell Count 11.06 K/mm3 (4.00-11.30)
[2024-09-21] MEDS ORDERED: Naloxone HCl 0.4MG / ML 1ML Vial IV PRN (05:50)
[2024-09-21] MEDS ORDERED: Cyclobenzaprine HCl 10 MG Tab PO PRN (05:50)
[2024-09-21] MEDS ORDERED: Morphine Sulfate 4 MG/1 ML Injection IV PRN (05:55)
[2024-09-21 06:06] LABS: Albumin, Blood 1.5 g/dL (3.4-5.0); Albumin/Globulin Ratio 0.3 (0.8-1.8); Bilirubin, Total 0.5 mg/dL (0.1-1.0); Creatinine, Blood 0.8 mg/dL (0.40-1.00); Globulin, Blood 4.3 g/dL (2.2-4.0); Potassium, Blood 3.5 mmol/L (3.5-5.5); Total Protein, Blood 5.8 g/dL (6.4-8.2)
[2024-09-21] MEDS ORDERED: OxyCODONE HCL 10 MG TABCR PO SCH (08:00)
[2024-09-21] MEDS ORDERED: TiZANidine HCl 4 MG Tab PO PRN (08:30)
[2024-09-21] MEDS ORDERED: Ketorolac Tromethamine 15mg Vial IV PRN (08:35)
[2024-09-21] MEDS ORDERED: AmLODIPine Besylate 5 MG Tab PO SCH (09:00)
[2024-09-21] MEDS ORDERED: Enoxaparin 40 MG/0.4 ML SYR SC SCH (09:00)
[2024-09-21] MEDS ORDERED: Atorvastatin 10 MG Tab PO SCH (09:00)
[2024-09-21] MEDS ORDERED: Loratadine 10 MG Tab PO SCH (09:00)
[2024-09-21] MEDS ORDERED: Losartan Potassium 50 MG Tab PO SCH (09:00)
[2024-09-21] MEDS ORDERED: Fludrocortisone Acetate 0.1 MG Tab PO SCH (09:00)
[2024-09-21 14:10] VITALS: BP 142/76
--- NOTE | 2024-09-21 15:34 | NUR ---
new patient admit, vitals, position for comfort, wht and time documented, r.n. and senior support engineer prsnt, patient writhing and panting in pain, c/o back neck pain, Kpad brought with warm blankets, pain meds admin before brought to us ineffective, r.n.admin adiition anti inflammatory, hyper concerned about phone calls and pain meds. frsh ice water provided, manic talking, s.o.b. half hour later sound asleep. resting comfortably.will continue to check.
--- NOTE | 2024-09-21 18:49 | NUR ---
PT ARRIVED A/O C/O INTENSE BACK PAIN, PT WAS GIVEN MORPHINE IN ER AND WHEN ARRIVED WAS STILL IN PAIN, SO PT WAS MEDICATED WITH TORODOL. LIGHTS WERE LOWERED AND PT WAS ALLOWED TO SLEEP FOR A WHILE.
--- NOTE | 2024-09-21 18:50 | NUR ---
PT SLEPT FOR 2 HOURS AND NOW SON IS AT BEDSIDE. PT STATES SHE FEELS MUCH BETTER AND I WAS ABLE TO DO ADMISSION. PHOTO OF COCCYX TAKEN AND PLACED IN CHART. PT WAS REMEDICATED FOR SEVERE BACK PAIN, CONT TO MONITOR
[2024-09-21 19:36] VITALS: BP 108/67
[2024-09-21] MEDS ORDERED: CefTRIAXone Sodium 1,000 MG in NS 100 ML IV SCH (21:00)
[2024-09-21] MEDS ORDERED: QUEtiapine Fumarate 200 MG Tab PO SCH (21:00)
[2024-09-22 03:20] VITALS: BP 108/66
[2024-09-22] MEDS ORDERED: Pantoprazole Sodium 40 MG Tab PO SCH (06:00)
--- NOTE | 2024-09-22 06:05 | NUR ---
SHIFT SUMMARY PT HAS BEEN RESTING OVERNIGHT. SHE HAS BEEN C/O CHRONIC PAIN IN HER MID BACK THROUGHOUT THE SHIFT. PT STATES SHE HAS NOT GOTTEN ENOUGH SLEEP, AND THAT SHE HAS NOT GOTTEN SLEEP 4 NIGHTS IN A ROW. REST, DISTRACTION, HEAT, AND MEDICATIONS HAVE ALL RELIEVED HER BACK PAIN. THE RELIEF IS NOT CONSTANT THOUGH, SHE WILL REST FOR ABOUT TWO HOURS AT A TIME, THEN START CRYING IN PAIN. PT IS CALM AND COOPERATIVE, AND ABLE TO MAKE HER NEEDS KNOWN. OTHERWISE, NO ACUTE EVENTS OVERNIGHT.
[2024-09-22 07:16] VITALS: BP 116/80
[2024-09-22] MEDS ORDERED: OxyCODONE HCL 5 MG TAB PO PRN (07:35)
[2024-09-22 08:46] LABS: BASOPHILS ABSOLUTE AUTO 0.03 K/mm3 (0.00-0.23); BASOPHILS PERCENT AUTO 0 % (0-2); EOSINOPHILS ABSOLUTE AUTO 0.02 K/mm3 (0.00-0.68); EOSINOPHILS PERCENT AUTO 0 % (0-6); Hematocrit 25.3 % (33.0-51.0); Hemoglobin 8.4 g/dL (11.5-16.0); IMMATURE GRAN ABSOLUTE AUTO 0.08 K/mm3 (0.00-0.10); IMMATURE GRAN PERCENT AUTO 1 % (0-1); LYMPHOCYTES ABSOLUTE AUTO 1.11 K/mm3 (0.84-5.20); LYMPHOCYTES PERCENT AUTO 11 % (21-46); MONOCYTES ABSOLUTE AUTO 0.76 K/mm3 (0.16-1.47); MONOCYTES PERCENT AUTO 7 % (4-13); Mean Corpuscular HGB 29.4 pg (26.0-34.0); Mean Corpuscular HGB Conc 33.2 g/dL (31.5-36.5); Mean Corpuscular Volume 89 fL (80-100); NEUTROPHILS ABSOLUTE AUTO 8.23 K/mm3 (1.96-9.15); NEUTROPHILS PERCENT AUTO 80 % (41-73); Platelet Count 427 K/mm3 (150-400); RDW Coefficient Variation 14.5 % (11.7-14.2); RDW Standard Deviation 47.1 fL (35.1-46.3); Red Blood Cell Count 2.86 M/mm3 (3.80-5.20); White Blood Cell Count 10.23 K/mm3 (4.00-11.30)
[2024-09-22 09:01] LABS: Albumin, Blood 1.5 g/dL (3.4-5.0); Albumin/Globulin Ratio 0.3 (0.8-1.8); Bilirubin, Total 0.3 mg/dL (0.1-1.0); Bun/Creatinine Ratio 17.7 (12.0-20.0); Calcium, Blood 8.1 mg/dL (8.5-10.1); Creatinine, Blood 0.9 mg/dL (0.40-1.00); Globulin, Blood 4.6 g/dL (2.2-4.0); Total Protein, Blood 6.1 g/dL (6.4-8.2)
[2024-09-22 15:02] VITALS: BP 90/60
--- NOTE | 2024-09-22 19:17 | NUR ---
uneventful day for pt, pt only complained of pain to back and was medicated other than that pt had no complaints. pt has been very incontinent of urine and has chronic issues with incontinence. mepilex change several times to back.
[2024-09-22 19:58] VITALS: BP 118/78
[2024-09-22] MEDS ORDERED: NS 250 ML IV PRN (20:15)
[2024-09-23 02:50] VITALS: BP 117/76
[2024-09-23] MEDS ORDERED: Acetaminophen 325 MG TABLET PO PRN (03:05)
--- NOTE | 2024-09-23 06:19 | NUR ---
SHIFT SUMMARY PT A&Ox4. PT C/O SEVERE PAIN T/O NIGHT. MEDICATED PER EMAR AND PT STATES THAT TORADOL WORKS BEST FOR TREATING PAIN. HEAT PACK IN PLACE WELL. PT DID HAVE TEMP OF 101 WITH MORNING VITALS. TYLENOL GIVEN AND TEMP DECREASED TO 98.7. OTHERWISE, VSS. PT INCONTINENT AND CHANGED PRN. CONTINUING IV ABX. BED IN LOWEST POSITION AND CALL LIGHT IN REACH.
[2024-09-23 06:37] LABS: BASOPHILS ABSOLUTE AUTO 0.04 K/mm3 (0.00-0.23); BASOPHILS PERCENT AUTO 1 % (0-2); EOSINOPHILS ABSOLUTE AUTO 0.05 K/mm3 (0.00-0.68); EOSINOPHILS PERCENT AUTO 1 % (0-6); Hematocrit 24.9 % (33.0-51.0); Hemoglobin 8.1 g/dL (11.5-16.0); IMMATURE GRAN ABSOLUTE AUTO 0.12 K/mm3 (0.00-0.10); IMMATURE GRAN PERCENT AUTO 1 % (0-1); LYMPHOCYTES ABSOLUTE AUTO 1.27 K/mm3 (0.84-5.20); LYMPHOCYTES PERCENT AUTO 15 % (21-46); MONOCYTES ABSOLUTE AUTO 0.82 K/mm3 (0.16-1.47); MONOCYTES PERCENT AUTO 10 % (4-13); Mean Corpuscular HGB 29.1 pg (26.0-34.0); Mean Corpuscular HGB Conc 32.5 g/dL (31.5-36.5); Mean Corpuscular Volume 90 fL (80-100); Mean Platelet Volume 8.7 fL (9.1-12.4); NEUTROPHILS ABSOLUTE AUTO 6.37 K/mm3 (1.96-9.15); NEUTROPHILS PERCENT AUTO 73 % (41-73); Platelet Count 399 K/mm3 (150-400); RDW Coefficient Variation 14.6 % (11.7-14.2); RDW Standard Deviation 47.1 fL (35.1-46.3); Red Blood Cell Count 2.78 M/mm3 (3.80-5.20); White Blood Cell Count 8.67 K/mm3 (4.00-11.30)
[2024-09-23 06:57] LABS: Albumin, Blood 1.4 g/dL (3.4-5.0); Albumin/Globulin Ratio 0.3 (0.8-1.8); Bilirubin, Total 0.3 mg/dL (0.1-1.0); Calcium, Blood 8.2 mg/dL (8.5-10.1); Creatinine, Blood 0.95 mg/dL (0.40-1.00); Globulin, Blood 4.6 g/dL (2.2-4.0); Potassium, Blood 3.9 mmol/L (3.5-5.5)
[2024-09-23 07:28] VITALS: BP 94/52
--- NOTE | 2024-09-23 11:27 | NUR ---
THIS RN INFORMED BY SHEMAR PATINO OF PT'S PRESSURE JUSTIN AND THERE WAS NOT A "PROVIDER INFORMEDF" NOTE. THIS RN CLARIFIED PRESSURE ULCER, APPEARS TO BE STAGE 2, MD INFORMED, AND ORDERS TOLD TO THE RN.
[2024-09-23 15:54] VITALS: BP 95/68
[2024-09-23] MEDS ORDERED: Amphetamine Sal20 MG PO (17:05)
[2024-09-23] MEDS ORDERED: ANORO ELLIPTA1 EAC1 INH (17:06)
[2024-09-23] MEDS ORDERED: Methocarbamol750 MG PO (17:07)
[2024-09-23] MEDS ORDERED: METOPROLOL SUCC25 MG PO (17:08)
--- NOTE | 2024-09-23 18:02 | NUR ---
SHIFT SUMMARY PT AOX4, COOPERATIVE, ABLE TO MAKE NEEDS KNOWN. PT HAS BEEN COMPLAINING OF PAIN TODAY, MEDICATED PER EMAR. NO OTHER ACUTE EVENTS TOOK PLACE THIS SHIFT. PT SHOULD DC 09/24/24. BED IN LOWEST POSITION, CALL LIGHT WITHIN REACH.
[2024-09-23 20:23] VITALS: BP 109/69
[2024-09-24 04:36] VITALS: BP 105/67
--- NOTE | 2024-09-24 05:43 | NUR ---
SHIFT SUMMARY PT A&Ox4 AND PLEASANT. PT'S PAIN BETTER CONTROLLED THAN PREVIOUS NIGHT. MEDICATED PER EMAR WITH GOOD EFFECT. PT UP TO BSC ONCE DURING THE NIGHT. NEW MEPALIX PLACED. VSS. BED IN LOWEST POSITION AND CALL LIGHT IN REACH.
[2024-09-24 07:23] VITALS: BP 115/80
--- NOTE | 2024-09-24 09:07 | NUR ---
pt sitting up on the side of the bed, is moaning, in severe pain in her low back, can move her feet, states her feet are numb, needed help getting her legs on to bed, a/ox4, remembered this nurse from a yr ago, plesant and cooperative with care, follows commands well, lungs are clear t/o dim in bases, resp even and unlabored, although panting at this time due to pain, on r/a, no cough noted, hrr, no edema noted, ppp+1, cap refill<3 sec, vs stable, afebrile, piv to left fa, site is clear and patent, btx4, abd flat soft nontender, can't remember when she had her last bm, is incont of urine, skin has decub to coccyx with mepilex in place, maew, legs are very weak, urmila, call light in reach.
[2024-09-24 09:45] LABS: BASOPHILS ABSOLUTE AUTO 0.03 K/mm3 (0.00-0.23); BASOPHILS PERCENT AUTO 1 % (0-2); EOSINOPHILS ABSOLUTE AUTO 0.07 K/mm3 (0.00-0.68); EOSINOPHILS PERCENT AUTO 1 % (0-6); Hematocrit 25.8 % (33.0-51.0); Hemoglobin 8.4 g/dL (11.5-16.0); IMMATURE GRAN ABSOLUTE AUTO 0.12 K/mm3 (0.00-0.10); IMMATURE GRAN PERCENT AUTO 2 % (0-1); LYMPHOCYTES ABSOLUTE AUTO 1.02 K/mm3 (0.84-5.20); LYMPHOCYTES PERCENT AUTO 16 % (21-46); MONOCYTES ABSOLUTE AUTO 0.46 K/mm3 (0.16-1.47); MONOCYTES PERCENT AUTO 7 % (4-13); Mean Corpuscular HGB Conc 32.6 g/dL (31.5-36.5); Mean Corpuscular Volume 89 fL (80-100); Mean Platelet Volume 8.8 fL (9.1-12.4); NEUTROPHILS PERCENT AUTO 74 % (41-73); Platelet Count 411 K/mm3 (150-400); RDW Coefficient Variation 14.6 % (11.7-14.2); RDW Standard Deviation 47.2 fL (35.1-46.3)
[2024-09-24 10:13] LABS: Bun/Creatinine Ratio 20.5 (12.0-20.0); Calcium, Blood 8.6 mg/dL (8.5-10.1); Creatinine, Blood 0.88 mg/dL (0.40-1.00); Potassium, Blood 4.3 mmol/L (3.5-5.5)
--- NOTE | 2024-09-24 13:02 | NUR ---
pt is getting little relief with pain measures, spoke with . he ordered a lidocain patch. report to [facility]. call light in reach.
[2024-09-24 14:33] VITALS: BP 91/65
--- NOTE | 2024-09-24 19:59 | NUR ---
assumed care pt day uneventful c/o pain and medicated. posssitive blood cultures called into md. pt slept for most of afternood until dinner and was medicated for pain. education was done on cultures and echo.
[2024-09-24 20:29] VITALS: BP 116/71
[2024-09-25 04:16] VITALS: BP 119/79
[2024-09-25 07:24] VITALS: BP 104/70
--- NOTE | 2024-09-25 07:27 | NUR ---
SUMMARY: PT A/OX4, CALLS APPROPRIATELY TO SPECIFY NEEDS AND IS PLEASANT AND COOPERATIVE W/CARE. SHE'S 1PA OOB W/FWW BUT HAS SHOULDER, BACK AND NECK PAIN THAT'S CURRENTLY LIMITING MOBILITY. KPAD AND ICE ALTERNATED AND SHE RECEIVED PRN TORADOL, TYLENOL MORPHINE, OXYCODONE AND ZANAFLEX T/O NOCTE FOR TOLERABLE RELIEF. PUREWIC UTILIZED T/O NOCTE AND MEPILEX REMAINS INTACT TO STAGE TO COCCYX SORE W/SCAB. IV INFUSING TKVO BETWEEN ABX. NO ACUTE CHANGES, VSS AND AFEBRILE. WCTM AND REPORT TO DAY RN.
--- NOTE | 2024-09-25 07:39 | NUR ---
ASSUMED CARE: PT RESTING IN BED. C/O SHOULDER AND BACK PAIN. NIGHT RN MEDICATED EARLY THIS AM, SEE EMAR. THIS RN MEDICATED ABLE. PT WANTS PAIN MEDS TO TAKE AFFECT PRIOR TO GETTING OUT OF BED FOR BREAKFAST. NO FURTHER NEEDS AT THIS TIME.
[2024-09-25 09:00] LABS: BASOPHILS ABSOLUTE AUTO 0.02 K/mm3 (0.00-0.23); BASOPHILS PERCENT AUTO 0 % (0-2); EOSINOPHILS ABSOLUTE AUTO 0.05 K/mm3 (0.00-0.68); EOSINOPHILS PERCENT AUTO 1 % (0-6); Hematocrit 24.9 % (33.0-51.0); Hemoglobin 8.1 g/dL (11.5-16.0); IMMATURE GRAN ABSOLUTE AUTO 0.14 K/mm3 (0.00-0.10); IMMATURE GRAN PERCENT AUTO 2 % (0-1); LYMPHOCYTES ABSOLUTE AUTO 1.25 K/mm3 (0.84-5.20); LYMPHOCYTES PERCENT AUTO 17 % (21-46); MONOCYTES ABSOLUTE AUTO 0.62 K/mm3 (0.16-1.47); MONOCYTES PERCENT AUTO 8 % (4-13); Mean Corpuscular HGB 29.3 pg (26.0-34.0); Mean Corpuscular HGB Conc 32.5 g/dL (31.5-36.5); Mean Corpuscular Volume 90 fL (80-100); Mean Platelet Volume 8.8 fL (9.1-12.4); NEUTROPHILS ABSOLUTE AUTO 5.28 K/mm3 (1.96-9.15); NEUTROPHILS PERCENT AUTO 72 % (41-73); Platelet Count 423 K/mm3 (150-400); RDW Coefficient Variation 14.6 % (11.7-14.2); RDW Standard Deviation 47.9 fL (35.1-46.3); Red Blood Cell Count 2.76 M/mm3 (3.80-5.20); White Blood Cell Count 7.36 K/mm3 (4.00-11.30)
[2024-09-25] MEDS ORDERED: Lidocaine 4% 1 Patch TOP SCH (09:00)
[2024-09-25 09:16] LABS: Bun/Creatinine Ratio 31.1 (12.0-20.0); Calcium, Blood 8.5 mg/dL (8.5-10.1); Creatinine, Blood 0.87 mg/dL (0.40-1.00); Potassium, Blood 4.3 mmol/L (3.5-5.5)
--- NOTE | 2024-09-25 10:38 | NUR ---
DR HANNA CAME TO ROUND ON PT AND THIS RN DISCUSSED HER DIFFICULTY WITH PAIN MANAGEMENT. DISCUSSED IMAGES WITH HIM AND THAT PT WAS WONDERING IF ANY COULD OR SHOULD BE DONE. DR AT BEDSIDE AT THIS TIME.
[2024-09-25 15:33] VITALS: BP 102/71
--- NOTE | 2024-09-25 17:21 | NUR ---
SHIFT SUMMARY: PT HAS BEEN MEDICATED FOR PAIN THROUGHOUT THE DAY. SHE WAS ABLE TO GET UP INTO THE SHOWER TODAY BUT C/O PAIN THE MOST WHEN SHE GETS UP AND MOVES. DR CONFIRMED THAT IMAGING HAS BEEN DONE. DR DID NOTE SWELLING TO LEFT HIP SO ULTRASOUND WAS DONE AND ORTHO CONSULTED. PT [place] N[place] FOR POTENTIAL [place]GERY. DENIES FURTHER NEEDS OR CONCERNS AT THIS TIME.
[2024-09-25 21:46] VITALS: BP 122/80
--- NOTE | 2024-09-26 04:44 | NUR ---
0045 TOOK OVER CARE OF PT FROM [facility], AGREE WITH HER ASSESSMENT. PT LYING IN BED, EYES CLOSED, APPEARS TO BE RESTING. BREATHING IS EVEN, UNLABORED. NO APPARENT SIGNS OF DISTRESS. CALL LIGHT IS IN REACH. BED ALARM IS ON.
--- NOTE | 2024-09-26 06:27 | NUR ---
0400 PT LYING IN BED, EYES CLOSED, APPEARS TO BE RESTING. BREATHING IS EVEN, UNLABORED. NO APPARENT SIGNS OF DISTRESS. CALL LIGHT IS IN REACH. BED ALARM IS ON.
--- NOTE | 2024-09-26 06:28 | NUR ---
PT IS AAO X 4, ON RA. REPORTS BACK AND NECK PAIN. MULT ADMINISTRATIONS OF PAIN MEDS. PT REPORTS TORADOL WORKS THE BEST. PUREWICK IN PLACE.
[2024-09-26 07:00] VITALS: BP 105/61
--- NOTE | 2024-09-26 07:26 | NUR ---
PT LYING IN BED, EYES CLOSED, APPEARS TO BE RESTING. BREATHING IS EVEN, UNLABORED. NO APPARENT SIGNS OF DISTRESS. CALL LIGHT IS IN REACH. BED ALARM IS ON. NO OTHER CHANGES THIS SHIFT.
[2024-09-26 08:56] LABS: BASOPHILS ABSOLUTE AUTO 0.03 K/mm3 (0.00-0.23); BASOPHILS PERCENT AUTO 0 % (0-2); EOSINOPHILS ABSOLUTE AUTO 0.12 K/mm3 (0.00-0.68); EOSINOPHILS PERCENT AUTO 2 % (0-6); Hematocrit 24.4 % (33.0-51.0); IMMATURE GRAN ABSOLUTE AUTO 0.13 K/mm3 (0.00-0.10); IMMATURE GRAN PERCENT AUTO 2 % (0-1); LYMPHOCYTES ABSOLUTE AUTO 1.16 K/mm3 (0.84-5.20); LYMPHOCYTES PERCENT AUTO 16 % (21-46); MONOCYTES ABSOLUTE AUTO 0.55 K/mm3 (0.16-1.47); MONOCYTES PERCENT AUTO 8 % (4-13); Mean Corpuscular HGB 29.3 pg (26.0-34.0); Mean Corpuscular HGB Conc 32.8 g/dL (31.5-36.5); Mean Corpuscular Volume 89 fL (80-100); Mean Platelet Volume 8.6 fL (9.1-12.4); NEUTROPHILS ABSOLUTE AUTO 5.22 K/mm3 (1.96-9.15); NEUTROPHILS PERCENT AUTO 72 % (41-73); Platelet Count 420 K/mm3 (150-400); RDW Coefficient Variation 14.7 % (11.7-14.2); RDW Standard Deviation 48.1 fL (35.1-46.3); Red Blood Cell Count 2.73 M/mm3 (3.80-5.20); White Blood Cell Count 7.21 K/mm3 (4.00-11.30)
[2024-09-26 09:19] LABS: International Normalized Ratio 1.03
[2024-09-26 09:24] LABS: Bun/Creatinine Ratio 31.1 (12.0-20.0); Creatinine, Blood 0.81 mg/dL (0.40-1.00); Potassium, Blood 4.7 mmol/L (3.5-5.5)
--- NOTE | 2024-09-26 13:06 | NUR ---
PAIN MEDS ADMINISTERED FOR PRIMARY RN, WHO IS UNAVAILABLE.
[2024-09-26] MEDS ORDERED: HYDROmorphone HCl/Pf 1MG SYR IV PRN (13:30)
[2024-09-26] MEDS ORDERED: Ketorolac Tromethamine 15mg Vial IV PRN (13:45)
[2024-09-26 15:25] LABS: Body Fluid Crystals NEG (NEGATIVE)
[2024-09-26 16:10] LABS: RBC Count, Synovial Fluid 10000 /mm3 (0-0)
[2024-09-26 16:11] LABS: WBC Count, Synovial Fluid 18600 /mm3 (0-180)
--- NOTE | 2024-09-26 16:16 | NUR ---
PT IS AOX4 AND COOPERATIVE OF CARE. PAIN HAS BEEN UNCONTROLLED THROUGHOUT THE SHIFT. PT TREATED PER EMAR AND IT HAS NOT BEEN EFFECTIVE AT THIS TIME. PT REPORT PAIN IN BACK AND TINGLING THROUGH PT'S ARMS TO FINGER TIPS. THIS WAS REPORTED TO DR VARGAS AND HE ADDED ORDERS TO EMAR. PT CONTINUES TO STAY NPO PER DR CLAUDIO. PT HAS NOT BEEN WANTING TO STAND DUE TO PAIN. CALL LIGHT IS WTIHIN REACH WILL CONITNUE TO MONITOR CLOSELY.
[2024-09-26 16:55] LABS: Lymphs, Synovial Fluid 1 % (0-15); Monocytes/Macrophages, Synovia 4 % (0-65); Neutrophils, Synovial Fluid 95 % (0-24)
[2024-09-26 16:56] LABS: Appearance, Synovial Fluid Cloudy (Clear); Color, Synovial Fluid Yellow (None-P Yel)
[2024-09-26 17:29] VITALS: BP 127/86
[2024-09-26 19:36] VITALS: BP 133/96
[2024-09-26] MEDS ORDERED: CefTRIAXone Sodium 2,000 MG in NS 100 ML IV SCH (21:00)
[2024-09-27] VITALS (11 sets, daily range): BP systolic 121–142; BP diastolic 73–98
--- NOTE | 2024-09-27 06:15 | NUR ---
Shift Summary Pt sent in for MRI at the start of the shift, awaiting results. She is still having intense pain in her neck and her R shoulder, she says the pain is mostly in her R shoulder. Medicated per EMAR for pain, pt was able to sleep through some of the night. She remained in bed d/t painful movements with a purewick in place for continent voids. She is AOx4, cooperative with care.
[2024-09-27 07:17] LABS: BASOPHILS ABSOLUTE AUTO 0.04 K/mm3 (0.00-0.23); BASOPHILS PERCENT AUTO 1 % (0-2); EOSINOPHILS ABSOLUTE AUTO 0.08 K/mm3 (0.00-0.68); EOSINOPHILS PERCENT AUTO 1 % (0-6); Hematocrit 25.8 % (33.0-51.0); Hemoglobin 8.5 g/dL (11.5-16.0); IMMATURE GRAN ABSOLUTE AUTO 0.11 K/mm3 (0.00-0.10); IMMATURE GRAN PERCENT AUTO 2 % (0-1); LYMPHOCYTES ABSOLUTE AUTO 1.26 K/mm3 (0.84-5.20); LYMPHOCYTES PERCENT AUTO 17 % (21-46); MONOCYTES ABSOLUTE AUTO 0.56 K/mm3 (0.16-1.47); MONOCYTES PERCENT AUTO 8 % (4-13); Mean Corpuscular HGB Conc 32.9 g/dL (31.5-36.5); Mean Corpuscular Volume 88 fL (80-100); Mean Platelet Volume 8.5 fL (9.1-12.4); NEUTROPHILS ABSOLUTE AUTO 5.33 K/mm3 (1.96-9.15); NEUTROPHILS PERCENT AUTO 72 % (41-73); Platelet Count 412 K/mm3 (150-400); RDW Coefficient Variation 14.5 % (11.7-14.2); RDW Standard Deviation 46.8 fL (35.1-46.3); Red Blood Cell Count 2.93 M/mm3 (3.80-5.20); White Blood Cell Count 7.38 K/mm3 (4.00-11.30)
[2024-09-27 07:37] LABS: Albumin, Blood 1.5 g/dL (3.4-5.0); Albumin/Globulin Ratio 0.3 (0.8-1.8); Bilirubin, Total 0.2 mg/dL (0.1-1.0); Bun/Creatinine Ratio 21.8 (12.0-20.0); C-REACTIVE PROTEIN, EXT RANGE 13.9 mg/dL (0.000-0.300); Creatinine, Blood 0.83 mg/dL (0.40-1.00); Globulin, Blood 5.5 g/dL (2.2-4.0); Magnesium, Blood 2.1 mg/dL (1.6-2.4); Potassium, Blood 4.5 mmol/L (3.5-5.5)
[2024-09-27] MEDS ORDERED: Lactated Ringer's 1,000 ML IV SCH (11:45)
[2024-09-27] MEDS ORDERED: Polyethylene Glycol 3350 17 gm PO PRN (11:50)
[2024-09-27] MEDS ORDERED: Pregabalin 50 MG Capsule PO SCH (12:00)
[2024-09-27] MEDS ORDERED: Docusate Sodium 100 MG Cap PO SCH ×2 (12:00→21:00)
[2024-09-27] MEDS ORDERED: Psyllium 1 EA Pack PO SCH (12:00)
--- NOTE | 2024-09-27 12:24 | NUR ---
PT RECENTLY TO [facility] BY BED. Patient confirms NPO status and agrees with scheduled surgery. Pre-Op teaching done. Pt verbalizes understanding. History, Chart, Medications and Allergies reviewed before start of procedure.Lungs clear T/O to Auscultation.
--- NOTE | 2024-09-27 12:53 | NUR ---
DENTURES PLACED IN CUP WITH PT'S NAME/BALL THREAD MACHINE TENDER IT AND PLACED IN PACU.
[2024-09-27] MEDS ORDERED: propofoL 20 ML IV ONE (12:57)
[2024-09-27] MEDS ORDERED: FentaNYL Citrate 50 MCG/ML 2 ML Injection ONE ×3 (12:59→13:46)
[2024-09-27] MEDS ORDERED: Rocuronium Bromide 10 MG/ML 5ML Injection IV ONE (13:00)
[2024-09-27] MEDS ORDERED: Ondansetron HCl 2 MG / ML 2ML Vial ONE (13:43)
[2024-09-27] MEDS ORDERED: Ketamine HCl 100 MG / ML 5ML Vial ONE (13:44)
[2024-09-27] MEDS ORDERED: Sugammadex Sodium 200 MG/2ML SDV (100 MG/ML) ONE (13:44)
[2024-09-27] MEDS ORDERED: Phenylephrine HCl 100 MCG/ML-NS 10MLSYR (1MG/10ML) ONE (13:56)
[2024-09-27] MEDS ORDERED: Vancomycin HCl 1000 MG ADDvantage ONE (14:03)
[2024-09-27] MEDS ORDERED: FLU VACC TS2024-25(6MOS UP)/PF 45 MCG/0.5 ML SYRINGE IM SCH (15:00)
[2024-09-27] MEDS ORDERED: OxyCODONE HCL 5 MG TAB PO PRN (15:05)
[2024-09-27] MEDS ORDERED: Ondansetron HCl 2 MG / ML 2ML Vial IV PRN (15:05)
[2024-09-27] MEDS ORDERED: HYDROmorphone HCl/Pf 1MG SYR IV PRN (15:05)
[2024-09-27] MEDS ORDERED: NS KCl 20mEq 1,000 ML IV SCH (15:05)
[2024-09-27] MEDS ORDERED: Ondansetron 4 MG TAB PO PRN (15:05)
[2024-09-27] MEDS ORDERED: Magnesium Hydroxide Conc 10 ML UDC PO PRN (15:05)
[2024-09-27] MEDS ORDERED: Acetaminophen 325 MG TABLET PO PRN (15:10)
[2024-09-27] MEDS ORDERED: Bisacodyl 10 MG Supp PR PRN (15:10)
[2024-09-27] MEDS ORDERED: Naloxone HCl 0.4MG / ML 1ML Vial IV PRN (15:10)
[2024-09-27] MEDS ORDERED: HYDROmorphone HCl/Pf 1MG SYR ONE (15:11)
--- NOTE | 2024-09-27 17:43 | NUR ---
PT CONTINUES AOX4 AND REPORTING UNRELIEVED PAIN THROUGHOUT THE DAY. PT WENT DOWN FOR I&D WITH DR CLAUDIO. PT ARRIVED BACK AOX4 AND IMMEDIATELY COMPLAINING OF PAIN. PT TREATED PER EMAR. ABLE TO USE BED PAIN AND CALLS APPROPRIATELY.STOOL SOFTNERS WERE REQUESTED AND NOW GIVEN ORDERED BY DR VARGAS. CALL LITH IS WITHIN REACH WILL CONTINUE MONITOR.
[2024-09-28 05:04] VITALS: BP 103/75
[2024-09-28 06:06] LABS: BASOPHILS ABSOLUTE AUTO 0.05 K/mm3 (0.00-0.23); BASOPHILS PERCENT AUTO 1 % (0-2); EOSINOPHILS ABSOLUTE AUTO 0.14 K/mm3 (0.00-0.68); EOSINOPHILS PERCENT AUTO 2 % (0-6); Hematocrit 23.5 % (33.0-51.0); Hemoglobin 7.6 g/dL (11.5-16.0); IMMATURE GRAN ABSOLUTE AUTO 0.11 K/mm3 (0.00-0.10); IMMATURE GRAN PERCENT AUTO 1 % (0-1); LYMPHOCYTES ABSOLUTE AUTO 1.03 K/mm3 (0.84-5.20); LYMPHOCYTES PERCENT AUTO 13 % (21-46); MONOCYTES ABSOLUTE AUTO 0.52 K/mm3 (0.16-1.47); MONOCYTES PERCENT AUTO 7 % (4-13); Mean Corpuscular HGB 29.2 pg (26.0-34.0); Mean Corpuscular HGB Conc 32.3 g/dL (31.5-36.5); Mean Corpuscular Volume 90 fL (80-100); Mean Platelet Volume 8.7 fL (9.1-12.4); NEUTROPHILS ABSOLUTE AUTO 5.85 K/mm3 (1.96-9.15); NEUTROPHILS PERCENT AUTO 76 % (41-73); Platelet Count 384 K/mm3 (150-400); RDW Coefficient Variation 14.3 % (11.7-14.2); RDW Standard Deviation 47.8 fL (35.1-46.3)
--- NOTE | 2024-09-28 06:29 | NUR ---
Shift Summary Pt states she has not had a BM for over 2 weeks. MoM was ordered yesterday, I gave the first dose last night along with scheduled bowel meds. No BM this shift. Pt states neck and shoulder are feeling much better and she thinks it may be because we just started her on Lyrica. Her back and legs and hip are very painful, she was medicated per EMAR. She is AOx4, she remained in bed because of her pain. She has been NPO since 0000 in anticipation of ARTHUR today.
[2024-09-28 06:46] LABS: Albumin, Blood 1.4 g/dL (3.4-5.0); Albumin/Globulin Ratio 0.3 (0.8-1.8); Bilirubin, Total 0.2 mg/dL (0.1-1.0); Bun/Creatinine Ratio 20.6 (12.0-20.0); C-REACTIVE PROTEIN, EXT RANGE 13.1 mg/dL (0.000-0.300); Calcium, Blood 8.4 mg/dL (8.5-10.1); Creatinine, Blood 0.88 mg/dL (0.40-1.00); Globulin, Blood 4.8 g/dL (2.2-4.0); Potassium, Blood 4.8 mmol/L (3.5-5.5); Total Protein, Blood 6.2 g/dL (6.4-8.2)
[2024-09-28 07:17] VITALS: BP 115/77
[2024-09-28] MEDS ORDERED: HYDROmorphone HCl/Pf 1MG SYR IV PRN (10:20)
[2024-09-28] MEDS ORDERED: Ketorolac Tromethamine 15mg Vial IV PRN (10:30)
[2024-09-28] MEDS ORDERED: Benzocaine Oral Spray 0.5ML UD ONE (12:05)
[2024-09-28] MEDS ORDERED: NS 1,000 ML IV ONE (12:07)
[2024-09-28] MEDS ORDERED: Propofol 10mg/ml 20 ml Vial (Procedural) IV ONE (14:07)
[2024-09-28 15:53] VITALS: BP 113/76
[2024-09-28 20:01] VITALS: BP 131/97
[2024-09-28] MEDS ORDERED: QUEtiapine Fumarate 200 MG Tab PO SCH (22:50)
[2024-09-29 05:37] VITALS: BP 118/86
--- NOTE | 2024-09-29 06:14 | NUR ---
SHIFT SUMMARY PT A&O X4. PT STATES SHE HAS TINGLING TO [place]. FEET SINCE SHE "PINCHED A NERVE". CERVICAL COLLAR IN PLACE. DRESSING TO LEFT HIP C/D/I. PT C/O SIGNIFICANT PAIN TO BACK, NECK, HIPS- MEDICATED PER EMAR. PT OOB TO BS DURING THE NIGHT, SHE STATES SHE PUSHED HERSELF TOO FAR DURING THE DAY WITH AMBULATION. PT HAVING SOME URGENCY/INCONT. EPISODES, BUT MOST CONTINENT. PT C/O CONSTIPATION- SCHEDULED BOWEL CARE AND PRN DULCOLAX SUPP PER EMAR. BED IN LOWEST POSITION, CALL LIGHT WITHIN REACH, SIDERAILS UP X2.
[2024-09-29 07:31] VITALS: BP 108/74
--- NOTE | 2024-09-29 14:08 | NUR ---
DRESSINGS TO THE LEFT HIP SURGICAL SITE CHANGED PER WOUND CARE ORDERS.
[2024-09-29] MEDS ORDERED: Enoxaparin 40 MG/0.4 ML SYR SC SCH (15:00)
[2024-09-29 15:48] VITALS: BP 138/81
[2024-09-29] MEDS ORDERED: OxyCODONE HCL 5 MG TAB PO PRN (17:27)
[2024-09-29] MEDS ORDERED: Nicotine 21 MG PATCH TOP SCH (17:30)
--- NOTE | 2024-09-29 19:17 | NUR ---
SHIFT SUMMARY PT IS A/OX4, SBA IN THE ROOM. NS AND KCL INFUSING CONTINUOUS @ 75 ML/HR. NO ACUTE CHANGED THROUGHOUT THIS SHIFT. MEDICATIONS FOR PAIN GIVEN PER MAR. PT REPORTS SMALL BOWEL MOVEMENTS THIS SHIFT. PT IS CONT/INCONT OF URINE.
[2024-09-29 20:28] VITALS: BP 146/84
[2024-09-30 02:35] VITALS: BP 120/77
[2024-09-30 07:09] VITALS: BP 121/88
[2024-09-30 10:26] LABS: BASOPHILS ABSOLUTE AUTO 0.03 K/mm3 (0.00-0.23); BASOPHILS PERCENT AUTO 0 % (0-2); EOSINOPHILS ABSOLUTE AUTO 0.19 K/mm3 (0.00-0.68); EOSINOPHILS PERCENT AUTO 2 % (0-6); Hematocrit 22.1 % (33.0-51.0); Hemoglobin 7.1 g/dL (11.5-16.0); IMMATURE GRAN ABSOLUTE AUTO 0.06 K/mm3 (0.00-0.10); IMMATURE GRAN PERCENT AUTO 1 % (0-1); LYMPHOCYTES ABSOLUTE AUTO 1.23 K/mm3 (0.84-5.20); LYMPHOCYTES PERCENT AUTO 14 % (21-46); MONOCYTES ABSOLUTE AUTO 0.57 K/mm3 (0.16-1.47); MONOCYTES PERCENT AUTO 7 % (4-13); Mean Corpuscular HGB 29.2 pg (26.0-34.0); Mean Corpuscular HGB Conc 32.1 g/dL (31.5-36.5); Mean Corpuscular Volume 91 fL (80-100); Mean Platelet Volume 8.6 fL (9.1-12.4); NEUTROPHILS ABSOLUTE AUTO 6.56 K/mm3 (1.96-9.15); NEUTROPHILS PERCENT AUTO 76 % (41-73); Platelet Count 390 K/mm3 (150-400); RDW Coefficient Variation 14.4 % (11.7-14.2); Red Blood Cell Count 2.43 M/mm3 (3.80-5.20); White Blood Cell Count 8.64 K/mm3 (4.00-11.30)
[2024-09-30] MEDS ORDERED: Polyethylene Glycol 3350 17 gm PO SCH (12:00)
[2024-09-30 12:37] LABS: Source, Urine Clean Catch
[2024-09-30 12:40] LABS: Appearance, Urine Clear (Clear); Bilirubin, Urine Neg (Neg); Blood, Urine 2+ (Neg); Glucose Qualitative, Urine Neg (Neg); Ketones, Urine Neg (Neg); Leukocyte Esterase, Urine Neg (Neg); Nitrite, Urine Neg (Neg); Protein, Urine Neg (Neg); Urobilinogen, Urine NORM (Normal)
[2024-09-30 12:45] LABS: Color, Urine Pale Yellow (P-Yellow); Squamous Epithelial Cells Rare /hpf (Few); White Blood Cells, Urine 0-2 /hpf (0-5)
[2024-09-30 12:46] LABS: Bacteria Few /hpf
[2024-09-30 13:15] LABS: Albumin, Blood 1.7 g/dL (3.4-5.0); Albumin/Globulin Ratio 0.3 (0.8-1.8); Bilirubin, Total 0.2 mg/dL (0.1-1.0); Bun/Creatinine Ratio 18.7 (12.0-20.0); Calcium, Blood 8.7 mg/dL (8.5-10.1); Creatinine, Blood 0.86 mg/dL (0.40-1.00); Globulin, Blood 5.5 g/dL (2.2-4.0); Magnesium, Blood 1.9 mg/dL (1.6-2.4); Potassium, Blood 4.7 mmol/L (3.5-5.5); Total Protein, Blood 7.2 g/dL (6.4-8.2)
[2024-09-30 15:31] VITALS: BP 132/88
[2024-09-30] MEDS ORDERED: Tiotropium Bromide 2.5 MCG/ACT MIST INHAL (10 ACT/4 GM) INH SCH (17:30)
[2024-09-30] MEDS ORDERED: Albuterol 2.5 MG/3 ML VIAL INH PRN (17:30)
[2024-09-30 19:30] VITALS: BP 148/90
--- NOTE | 2024-09-30 19:45 | NUR ---
SHIFT SUMMARY PT IS A/OX4, SBA TO BATHROOM WITH FWW. PT REPORTING BACK AND NECK PAIN THROUGHOUT THIS SHIFT, MEDICATED PER OCT. PT ALSO REPORTING PAINFUL URINATION WITH FREQUENCY AND URGENCY, PHYSICAN NOTIFIED, UA SENT. PT REMAINS CONT/INCONT OF URINE. DRESSING TO THE LEFT HIP CHANGED THIS AFTERNOON. PT CALLS APPROPRIATELY.
[2024-09-30] MEDS ORDERED: Pregabalin 50 MG Capsule PO SCH (21:00)
[2024-09-30] MEDS ORDERED: Phenazopyridine HCl 100 MG Tab PO SCH (21:00)
[2024-10-01 03:36] VITALS: BP 107/70
--- NOTE | 2024-10-01 04:44 | NUR ---
SHIFT SUMMARY; PATIENT SLEPT IN SHORT INTERVALS. WAS UP WALKING WITH WALKER IN HALLWAY. WANTED ALL PRN MEDS THAT SHE COULD HAVE.ALSO GAVE MOM.
[2024-10-01 07:46] VITALS: BP 91/66
[2024-10-01 10:07] LABS: BASOPHILS ABSOLUTE AUTO 0.04 K/mm3 (0.00-0.23); BASOPHILS PERCENT AUTO 1 % (0-2); EOSINOPHILS ABSOLUTE AUTO 0.22 K/mm3 (0.00-0.68); EOSINOPHILS PERCENT AUTO 3 % (0-6); Hematocrit 24.1 % (33.0-51.0); Hemoglobin 7.6 g/dL (11.5-16.0); IMMATURE GRAN ABSOLUTE AUTO 0.07 K/mm3 (0.00-0.10); IMMATURE GRAN PERCENT AUTO 1 % (0-1); LYMPHOCYTES ABSOLUTE AUTO 1.34 K/mm3 (0.84-5.20); LYMPHOCYTES PERCENT AUTO 15 % (21-46); MONOCYTES ABSOLUTE AUTO 0.43 K/mm3 (0.16-1.47); MONOCYTES PERCENT AUTO 5 % (4-13); Mean Corpuscular HGB 28.6 pg (26.0-34.0); Mean Corpuscular HGB Conc 31.5 g/dL (31.5-36.5); Mean Corpuscular Volume 91 fL (80-100); Mean Platelet Volume 8.9 fL (9.1-12.4); NEUTROPHILS ABSOLUTE AUTO 6.74 K/mm3 (1.96-9.15); NEUTROPHILS PERCENT AUTO 76 % (41-73); Platelet Count 402 K/mm3 (150-400); RDW Coefficient Variation 14.3 % (11.7-14.2); RDW Standard Deviation 47.2 fL (35.1-46.3); Red Blood Cell Count 2.66 M/mm3 (3.80-5.20); White Blood Cell Count 8.84 K/mm3 (4.00-11.30)
[2024-10-01 10:35] LABS: Albumin, Blood 1.9 g/dL (3.4-5.0); Albumin/Globulin Ratio 0.3 (0.8-1.8); Bilirubin, Total 0.3 mg/dL (0.1-1.0); Bun/Creatinine Ratio 23.7 (12.0-20.0); Calcium, Blood 8.7 mg/dL (8.5-10.1); Creatinine, Blood 0.84 mg/dL (0.40-1.00); Globulin, Blood 5.8 g/dL (2.2-4.0); Magnesium, Blood 2.3 mg/dL (1.6-2.4); Potassium, Blood 4.2 mmol/L (3.5-5.5); Total Protein, Blood 7.7 g/dL (6.4-8.2)
[2024-10-01 14:58] VITALS: BP 125/77
--- NOTE | 2024-10-01 18:24 | NUR ---
SHIFT SUMMARY PATIENT ABLE TO AMBULATE IN ROOM. C/O CHRONIC BACK PAIN, MEDICATED PER MAR WITH GOOD RELIEF. WOUND CARE PERFORMED TO LEFT HIP, SUTURES INTACT, MINIMAL DRAINAGE. SANGUINOUS, NO ODOR, BRUISING TO SURROUNDING TISSUE.
[2024-10-01 19:33] VITALS: BP 116/88
[2024-10-01] MEDS ORDERED: Peg 400/Hypromellose/Glycerin 15 DROP/ML BTL BOTHEYES PRN (20:00)
[2024-10-01] MEDS ORDERED: Peg 400/Hypromellose/Glycerin 15 DROP/ML BTL BOTHEYES ONE (20:00)
[2024-10-02 02:53] VITALS: BP 110/79
[2024-10-02 06:11] LABS: BASOPHILS ABSOLUTE AUTO 0.04 K/mm3 (0.00-0.23); BASOPHILS PERCENT AUTO 1 % (0-2); EOSINOPHILS PERCENT AUTO 3 % (0-6); Hematocrit 22.2 % (33.0-51.0); Hemoglobin 6.9 g/dL (11.5-16.0); IMMATURE GRAN ABSOLUTE AUTO 0.07 K/mm3 (0.00-0.10); IMMATURE GRAN PERCENT AUTO 1 % (0-1); LYMPHOCYTES ABSOLUTE AUTO 1.25 K/mm3 (0.84-5.20); LYMPHOCYTES PERCENT AUTO 17 % (21-46); MONOCYTES ABSOLUTE AUTO 0.51 K/mm3 (0.16-1.47); MONOCYTES PERCENT AUTO 7 % (4-13); Mean Corpuscular HGB 28.6 pg (26.0-34.0); Mean Corpuscular HGB Conc 31.1 g/dL (31.5-36.5); Mean Corpuscular Volume 92 fL (80-100); Mean Platelet Volume 8.7 fL (9.1-12.4); NEUTROPHILS ABSOLUTE AUTO 5.12 K/mm3 (1.96-9.15); NEUTROPHILS PERCENT AUTO 71 % (41-73); Platelet Count 369 K/mm3 (150-400); RDW Coefficient Variation 14.4 % (11.7-14.2); RDW Standard Deviation 49.1 fL (35.1-46.3); Red Blood Cell Count 2.41 M/mm3 (3.80-5.20); White Blood Cell Count 7.19 K/mm3 (4.00-11.30)
[2024-10-02 06:55] LABS: Albumin, Blood 1.8 g/dL (3.4-5.0); Albumin/Globulin Ratio 0.3 (0.8-1.8); Bilirubin, Total 0.3 mg/dL (0.1-1.0); Bun/Creatinine Ratio 21.3 (12.0-20.0); Calcium, Blood 8.6 mg/dL (8.5-10.1); Creatinine, Blood 0.89 mg/dL (0.40-1.00); Globulin, Blood 5.3 g/dL (2.2-4.0); Magnesium, Blood 2.1 mg/dL (1.6-2.4); Potassium, Blood 4.1 mmol/L (3.5-5.5); Total Protein, Blood 7.1 g/dL (6.4-8.2)
[2024-10-02 08:49] VITALS: BP 124/91
[2024-10-02] MEDS ORDERED: Simethicone 80 MG Chew PO PRN (15:50)
[2024-10-02] MEDS ORDERED: Docusate Sodium/Senna 1 Tab PO PRN (15:55)
--- NOTE | 2024-10-02 17:35 | NUR ---
SHIFT SUMMARY PATIENT AMBULATING IN HALLS THIS SHIFT. C/O CONSTIPATION, MEDS GIVEN, BROWN COW GIVEN, REPORTS SMALL HARD RESULTS, DECLINED MIRALAX, EDUCATED. INCISION TO LEFT HIP INTACT, SUTURES PRESENT. MINIMAL DRAINAGE, DRESSING CHANGED. EDUCATED REGARDING PAIN MANAGMENT, SPLITING TIME BETWEEN PAIN MEDS AND MUSCLE RELAXERS, AGREEABLE TO NEW PLAN.
[2024-10-02 20:06] VITALS: BP 122/93
[2024-10-03] VITALS (12 sets, daily range): BP systolic 106–153; BP diastolic 71–129
[2024-10-03 06:24] LABS: BASOPHILS ABSOLUTE AUTO 0.04 K/mm3 (0.00-0.23); BASOPHILS PERCENT AUTO 0 % (0-2); EOSINOPHILS ABSOLUTE AUTO 0.16 K/mm3 (0.00-0.68); EOSINOPHILS PERCENT AUTO 2 % (0-6); Hematocrit 19.1 % (33.0-51.0); IMMATURE GRAN ABSOLUTE AUTO 0.05 K/mm3 (0.00-0.10); IMMATURE GRAN PERCENT AUTO 1 % (0-1); LYMPHOCYTES PERCENT AUTO 14 % (21-46); MONOCYTES ABSOLUTE AUTO 0.48 K/mm3 (0.16-1.47); MONOCYTES PERCENT AUTO 5 % (4-13); Mean Corpuscular HGB 29.3 pg (26.0-34.0); Mean Corpuscular HGB Conc 31.4 g/dL (31.5-36.5); Mean Corpuscular Volume 93 fL (80-100); Mean Platelet Volume 9.3 fL (9.1-12.4); NEUTROPHILS PERCENT AUTO 78 % (41-73); Platelet Count 348 K/mm3 (150-400); RDW Coefficient Variation 14.6 % (11.7-14.2); RDW Standard Deviation 49.9 fL (35.1-46.3); Red Blood Cell Count 2.05 M/mm3 (3.80-5.20); White Blood Cell Count 9.13 K/mm3 (4.00-11.30)
[2024-10-03 06:56] LABS: Albumin, Blood 1.7 g/dL (3.4-5.0); Albumin/Globulin Ratio 0.3 (0.8-1.8); Bilirubin, Total 0.2 mg/dL (0.1-1.0); Bun/Creatinine Ratio 18.1 (12.0-20.0); Calcium, Blood 8.6 mg/dL (8.5-10.1); Creatinine, Blood 0.94 mg/dL (0.40-1.00); Globulin, Blood 5.3 g/dL (2.2-4.0); Magnesium, Blood 2.1 mg/dL (1.6-2.4); Potassium, Blood 4.3 mmol/L (3.5-5.5)
[2024-10-03] MEDS ORDERED: Ibuprofen 600 MG Tab PO PRN (16:15)
[2024-10-03 18:38] LABS: Hematocrit 26.6 % (33.0-51.0); Hemoglobin 8.6 g/dL (11.5-16.0)
--- NOTE | 2024-10-03 19:29 | NUR ---
SHIFT SUMMARY PT CONT LEVEL OF CARE PT NOTED TO BE A&OX4 AND IND WITH FWW. PT NOTED TO RECEIVE 2UNITS OF BLOOD THIS SHIFT D/T HBG 6. HGB NOTED TO BE 8.6 ONCE LABS WERE REDRAWN. PT NOTED TO CONT HAVE CONSTANT CHRONIC PAIN TO BACK,NECK,HIPS. PT MEDICATED PER EMAR WITH NO STEADY RELIEF. PT SON NOTED TO BRING IN HER TENS UNIT TO DRAWER UPFITTER IN CONTROLLING HER PAIN. PT STATED SHE NOT HAD A BM IN SEVERAL DAYS. PT WAS GIVEN MOM, 2 CUPS OF PRUNE JUICE, BUTTER AND COFFEE.
--- NOTE | 2024-10-04 03:46 | NUR ---
SENIOR MEDICAL WRITER SUMMARY BP ELEVATED, OTHERWISE VSS. VERBAL RESPONSE APPROPRIATE. VOICED DIFFICULTY IN HAVING BM. MED ADMINISTERED. PAIN MEDS AND ANTIBIOTICS ALSO GIVEN - SEE MAR FOR DETAILS. UP AD HANY TO BATHROOM AND ABLE TO REPOSITION SELF IN BED FOR COMFORT. HAS BEEN RESTING QUIETLY WITH OCCASIONAL INTERRUPTIONS. CALL LIGHT IN REACH, RAILS UP X 2 AND BED IN LOW POSITION FOR SAFETY. DRESSING OF LEFT HIP CDI. WILL CONTINUE TO MONITOR.
[2024-10-04 05:00] VITALS: BP 114/79
[2024-10-04 06:23] LABS: BASOPHILS ABSOLUTE AUTO 0.05 K/mm3 (0.00-0.23); BASOPHILS PERCENT AUTO 1 % (0-2); EOSINOPHILS ABSOLUTE AUTO 0.24 K/mm3 (0.00-0.68); EOSINOPHILS PERCENT AUTO 3 % (0-6); Hematocrit 27.6 % (33.0-51.0); Hemoglobin 8.9 g/dL (11.5-16.0); IMMATURE GRAN ABSOLUTE AUTO 0.06 K/mm3 (0.00-0.10); IMMATURE GRAN PERCENT AUTO 1 % (0-1); LYMPHOCYTES ABSOLUTE AUTO 1.23 K/mm3 (0.84-5.20); LYMPHOCYTES PERCENT AUTO 18 % (21-46); MONOCYTES ABSOLUTE AUTO 0.48 K/mm3 (0.16-1.47); MONOCYTES PERCENT AUTO 7 % (4-13); Mean Corpuscular HGB 29.4 pg (26.0-34.0); Mean Corpuscular HGB Conc 32.2 g/dL (31.5-36.5); Mean Corpuscular Volume 91 fL (80-100); Mean Platelet Volume 9.1 fL (9.1-12.4); NEUTROPHILS ABSOLUTE AUTO 4.91 K/mm3 (1.96-9.15); NEUTROPHILS PERCENT AUTO 71 % (41-73); Platelet Count 357 K/mm3 (150-400); RDW Coefficient Variation 14.6 % (11.7-14.2); RDW Standard Deviation 48.5 fL (35.1-46.3); Red Blood Cell Count 3.03 M/mm3 (3.80-5.20); White Blood Cell Count 6.97 K/mm3 (4.00-11.30)
[2024-10-04 06:59] LABS: Albumin, Blood 1.8 g/dL (3.4-5.0); Albumin/Globulin Ratio 0.3 (0.8-1.8); Bilirubin, Total 0.3 mg/dL (0.1-1.0); Bun/Creatinine Ratio 19.9 (12.0-20.0); Calcium, Blood 9.1 mg/dL (8.5-10.1); Creatinine, Blood 0.8 mg/dL (0.40-1.00); Globulin, Blood 5.8 g/dL (2.2-4.0); Magnesium, Blood 2.1 mg/dL (1.6-2.4); Potassium, Blood 3.9 mmol/L (3.5-5.5); Total Protein, Blood 7.6 g/dL (6.4-8.2)
[2024-10-04 07:28] VITALS: BP 117/80
[2024-10-04] MEDS ORDERED: Magnesium Citrate 300 ML BTL PO ONE (07:40)
[2024-10-04 15:13] VITALS: BP 143/92
[2024-10-04] MEDS ORDERED: CeFAZolin Sodium 2,000 MG in NS 100 ML IV SCH (16:00)
--- NOTE | 2024-10-04 18:39 | NUR ---
PATIENT A/OX4, UP INDEPENDENTLY IN ROOM AND HALLS WITH FWW. NECK BRACE IN PLACE PER PATIENT REQUEST, SPOKE WITH DR HANNA AND THE BRACE DOES NOT HAVE TO BE WORN AT ALL TIMES. PLAN IS FOR 6 WEEKS OF ANTIBIOTICS AND PICC LINE WILL NEED PLACED BEFORE DC. CHARGE NURSE NOTIFIED OF NEED FOR PICC LINE. VSS, ON RA. DRESSING TO L HIP CHANGED THIS SHIFT. PATIENT HAD BOWEL MOVEMENT TODAY AND BOWEL CARE IS SCHEDULED. HGB STABLE, NO BLOOD TRANSFUSION NEEDED TODAY. PATIENT IS PLEASANT AND COOPERATIVE AND ABLE TO MAKE NEEDS KNOWN.
[2024-10-04 20:22] VITALS: BP 139/93
--- NOTE | 2024-10-04 21:56 | NUR ---
EXTRA GANG SUPERVISOR SUMMARY VSS. ALERT AND ORIENTED AND COOPERATIVE WITH TREATMENT. UP AD LIOB WITH WALKER, AMBULATED UP AND DOWN HALLWAY WITHOUT APPAREANT DIFFICULTIES. ANALGESICS ADMINISTERED - SEE MAR FOR DETAILS. RESTING QUIELTY WITH FEW INTERRUPTIONS. ABLE TO REPOSITION SELF IN BED WITHOUT ASSIST FOR COMFORT. CALL LIGHT IN REACH, RAILS UP X 2 AND BED IN LOW POSITION FOR SAFETY. WILL CONT TO MONITOR
[2024-10-05 04:02] VITALS: BP 144/97
[2024-10-05 06:22] LABS: BASOPHILS ABSOLUTE AUTO 0.04 K/mm3 (0.00-0.23); BASOPHILS PERCENT AUTO 1 % (0-2); EOSINOPHILS ABSOLUTE AUTO 0.21 K/mm3 (0.00-0.68); EOSINOPHILS PERCENT AUTO 4 % (0-6); Hematocrit 27.4 % (33.0-51.0); Hemoglobin 8.7 g/dL (11.5-16.0); IMMATURE GRAN ABSOLUTE AUTO 0.04 K/mm3 (0.00-0.10); IMMATURE GRAN PERCENT AUTO 1 % (0-1); LYMPHOCYTES ABSOLUTE AUTO 1.15 K/mm3 (0.84-5.20); LYMPHOCYTES PERCENT AUTO 19 % (21-46); MONOCYTES ABSOLUTE AUTO 0.45 K/mm3 (0.16-1.47); MONOCYTES PERCENT AUTO 8 % (4-13); Mean Corpuscular HGB 29.2 pg (26.0-34.0); Mean Corpuscular HGB Conc 31.8 g/dL (31.5-36.5); Mean Corpuscular Volume 92 fL (80-100); Mean Platelet Volume 9.1 fL (9.1-12.4); NEUTROPHILS ABSOLUTE AUTO 4.09 K/mm3 (1.96-9.15); NEUTROPHILS PERCENT AUTO 68 % (41-73); Platelet Count 426 K/mm3 (150-400); RDW Coefficient Variation 14.5 % (11.7-14.2); RDW Standard Deviation 48.6 fL (35.1-46.3); Red Blood Cell Count 2.98 M/mm3 (3.80-5.20); White Blood Cell Count 5.98 K/mm3 (4.00-11.30)
[2024-10-05 06:56] LABS: Albumin, Blood 1.9 g/dL (3.4-5.0); Albumin/Globulin Ratio 0.3 (0.8-1.8); Bilirubin, Total 0.2 mg/dL (0.1-1.0); Bun/Creatinine Ratio 26.4 (12.0-20.0); Creatinine, Blood 0.76 mg/dL (0.40-1.00); Globulin, Blood 5.7 g/dL (2.2-4.0); Total Protein, Blood 7.6 g/dL (6.4-8.2)
[2024-10-05 07:22] VITALS: BP 137/95
[2024-10-05 15:21] VITALS: BP 180/98
--- NOTE | 2024-10-05 15:25 | NUR ---
MD NOTIFIED OF ELEVATED BP, NO PRNs AT THIS TIME. BLOOD PRESSURE 180s/90s. PATIENT ON MULTIPLE PHONE CALLS AND STATES "STRESSED: ABOUT DISCHARGE. VISIBLY ANXIOUS AND YELLING ON THE PHONE. MD STATES TO RE EVALUATE ONCE PATIENT HAS CALMED DOWN. NO NEW ORDERS AT THIS TIME.
[2024-10-05 16:25] VITALS: BP 140/97
--- NOTE | 2024-10-05 18:11 | NUR ---
SHIFT SUMMARY PATIENT A/OX4, ABLE TO MAKE NEEDS KNOWN. ANXIOUS BUT COOPERATIVE WITH CARE. PATIENT ON MULTIPLE PHONE CALLS THIS SHIFTWITH HIGH STRESS AND STATES SHE HAS "LOTS OF STRESS AT HOME". PATIENT OVERHEARD YELLING ON THE PHONE MULTIPLE TIMES THROUGHOUT THE SHIFT. SON CAME TO VISIT THIS AFTERNOON WITH HER GRANDCHILD. BLOOD PRESSURE ELEVATED THIS EVENING 180s/90s, AFTER PATIENT FINISHED WITH HER PHONE CALLS, BLOOD PRESURE LOWERED. MD AWARE. DRESSINGS CHANGES TO SACRUM AND LEFT HIP. PAIN MEDICATION ADMINISTERED MULTIPLE TIMES THROUGHOUT THE DAY PER OCT FOR BACK, LEFT HIP, AND NECK PAIN. PATIENT CURRENTLY COMPLAINING OF CHEST PAIN, VITAL SIGNS STABLE. MD NOTIFIED VIA XINTECNE AND EKG ORDERED AND OBTAINED. WILL CONTINUE TO MONITOR. MD STATES WILL COM TO BEDSIDE TO REVIEW EKGs OBTAINED.
[2024-10-05 19:27] VITALS: BP 147/93
[2024-10-06 02:27] VITALS: BP 132/93
[2024-10-06 06:19] LABS: BASOPHILS ABSOLUTE AUTO 0.05 K/mm3 (0.00-0.23); BASOPHILS PERCENT AUTO 1 % (0-2); EOSINOPHILS ABSOLUTE AUTO 0.23 K/mm3 (0.00-0.68); EOSINOPHILS PERCENT AUTO 4 % (0-6); Hematocrit 27.1 % (33.0-51.0); Hemoglobin 8.7 g/dL (11.5-16.0); IMMATURE GRAN ABSOLUTE AUTO 0.05 K/mm3 (0.00-0.10); IMMATURE GRAN PERCENT AUTO 1 % (0-1); LYMPHOCYTES ABSOLUTE AUTO 1.28 K/mm3 (0.84-5.20); LYMPHOCYTES PERCENT AUTO 20 % (21-46); MONOCYTES ABSOLUTE AUTO 0.57 K/mm3 (0.16-1.47); MONOCYTES PERCENT AUTO 9 % (4-13); Mean Corpuscular HGB 29.5 pg (26.0-34.0); Mean Corpuscular HGB Conc 32.1 g/dL (31.5-36.5); Mean Corpuscular Volume 92 fL (80-100); Mean Platelet Volume 8.9 fL (9.1-12.4); NEUTROPHILS ABSOLUTE AUTO 4.09 K/mm3 (1.96-9.15); NEUTROPHILS PERCENT AUTO 65 % (41-73); Platelet Count 395 K/mm3 (150-400); RDW Coefficient Variation 14.5 % (11.7-14.2); RDW Standard Deviation 48.5 fL (35.1-46.3); Red Blood Cell Count 2.95 M/mm3 (3.80-5.20); White Blood Cell Count 6.27 K/mm3 (4.00-11.30)
--- NOTE | 2024-10-06 06:34 | NUR ---
SHIFT SUMMARY: Pt admitted for sepsis and is a full code. Is alert and able to make needs known. ADLs have been IND. pain has been managed with PRN medications.
[2024-10-06 06:42] LABS: Albumin/Globulin Ratio 0.3 (0.8-1.8); Bilirubin, Total 0.2 mg/dL (0.1-1.0); Bun/Creatinine Ratio 22.7 (12.0-20.0); Calcium, Blood 8.8 mg/dL (8.5-10.1); Creatinine, Blood 0.93 mg/dL (0.40-1.00); Globulin, Blood 5.9 g/dL (2.2-4.0); Magnesium, Blood 2.2 mg/dL (1.6-2.4); Potassium, Blood 4.2 mmol/L (3.5-5.5); Total Protein, Blood 7.9 g/dL (6.4-8.2)
[2024-10-06 07:25] VITALS: BP 139/100
[2024-10-06 16:18] VITALS: BP 158/99
[2024-10-06] MEDS ORDERED: ATOR20 PO (16:27)
[2024-10-06] MEDS ORDERED: CEFAZOLIN2 GM/50 M3 IV (16:27)
[2024-10-06] MEDS ORDERED: LIDO700A20 TOP (16:28)
[2024-10-06] MEDS ORDERED: IBUP600 PO (16:28)
[2024-10-06] MEDS ORDERED: DOCUZEN 8.6-501 EACH PO (16:28)
[2024-10-06] MEDS ORDERED: LOSA25 PO (16:29)
[2024-10-06] MEDS ORDERED: MIRALAX17 GM PO (16:29)
[2024-10-06] MEDS ORDERED: PREG100 PO (16:29)
--- NOTE | 2024-10-06 17:20 | NUR ---
DISCHARGE NOTE PATIENT PERIPHERAL IV REMOVED FROM RIGHT WRIST. PICC TO LEFT UPPER ARM PLACED TODAY FOR ONGOING COURSE OF ANTIBIOTICS. REPORT GIVEN TO ANNIKA AT [facility]. BELONGINGS GATHERED AND RETURNED. HARD SCRIPTS SENT WITH PATIENT IN PACKET. NO OTHER QUESTIONS OR CONCERNS PRIOR TO D/C
== END 2024-10-06 17:13 | DRG 498 ==
LOC: ER 18:48 → ERHOLD 18:49 → MEDS 09-21 14:00
PROVIDERS: Emergency Medicine; Family Medicine; Hospitalist; Orthopaedic Surgery; Student in an Organized Health Care Education/Training Program; ADMIT Student in an Organized Health Care Education/Training Program
PROC: 3E03329 Introduction of Other Anti-infective into Peripheral Vein, Percutaneous Approach (ICD-10-PCS; 2024-09-21)
PROC: 0S9B3ZZ Drainage of Left Hip Joint, Percutaneous Approach (ICD-10-PCS; 2024-09-26)
PROC: 0QP704Z Removal of Internal Fixation Device from Left Upper Femur, Open Approach (ICD-10-PCS; 2024-09-27)
PROC: 0MBM0ZZ Excision of Left Hip Bursa and Ligament, Open Approach (ICD-10-PCS; principal; 2024-09-27 12:30)
PROC: 30233N1 Transfusion of Nonautologous Red Blood Cells into Peripheral Vein, Percutaneous Approach (ICD-10-PCS; 2024-10-03)
DX: T84.52XA Infection and inflammatory reaction due to internal left hip prosthesis, initial encounter (principal); A41.01 Sepsis due to Methicillin susceptible Staphylococcus aureus; D62 Acute posthemorrhagic anemia; F11.20 Opioid dependence, uncomplicated; I13.0 Hypertensive heart and chronic kidney disease with heart failure and stage 1 through stage 4 chronic kidney disease, or unspecified chronic kidney disease; N39.0 Urinary tract infection, site not specified; M71.152 Other infective bursitis, left hip; K21.9 Gastro-esophageal reflux disease without esophagitis; M10.9 Gout, unspecified; M54.50 Low back pain, unspecified; N18.32 Chronic kidney disease, stage 3b; I50.9 Heart failure, unspecified; F41.9 Anxiety disorder, unspecified; Z28.21 Immunization not carried out because of patient refusal; Z96.643 Presence of artificial hip joint, bilateral; G89.4 Chronic pain syndrome; G47.00 Insomnia, unspecified; G47.33 Obstructive sleep apnea (adult) (pediatric); M54.12 Radiculopathy, cervical region; J44.9 Chronic obstructive pulmonary disease, unspecified; R35.0 Frequency of micturition; R39.15 Urgency of urination; K59.09 Other constipation; H04.129 Dry eye syndrome of unspecified lacrimal gland; M79.7 Fibromyalgia; Z90.710 Acquired absence of both cervix and uterus; Z87.891 Personal history of nicotine dependence; Z79.899 Other long term (current) drug therapy
CPT/HCPCS: 0241U; 20611; 36415; 36430; 36569; 71260; 72040; 72156; 72170; 73100; 74177; 76882; 80048; 80053; 81001; 82550; 82947; 83605; 83735; 83930; 84100; 84484; 85014; 85018; 85025; 85610; 85651; 85730; 86140; 86850; 86900; 86901; 86923; 87040; 87070; 87075; 87077; 87086; 87147; 87186; 87205; 88304; 89051; 89060; 93005; 93010; 93306; 93312; 93325; 94640; 94760; 94762; 96361; 96365; 96375; 97110; 97116; 97162; 97164; 97165; 97530; 97535; 99285-25; A9270; A9579; C1751; G0378; J0690; J0696; J1171; J1650; J1885; J2270; J2371; J2405; J2704; J3010; J3370; J3480; J7030; J7050; J7120; P9016; Q9967

== ENCOUNTER → 2024-09-20 | Outpatient (CLI) | payer OTHER ==
[~2024-09-20] MED LIST changes: +ALBU90OI INH; +AMLO10 PO; +ANORO ELLIPTA1 EAC1 INH; +Acetaminophen650 M1 PO; +Amphetamine Sal20 MG PO; +Cyclobenzaprine5 MG PO; +IPRAT-ALBUT 0.5-3 ML INH; +LIDOCAINE1 EACH TOP; +LOSARTAN POTASS25 M2 PO; +METOPROLOL SUCC25 MG PO; +Methocarbamol750 MG PO; +OXYC10TA19 PO; +VILAZODONE HCL20 MG PO
[2024-09-20 17:56] LABS: BASOPHILS ABSOLUTE AUTO 0.04 K/mm3 (0.00-0.23); BASOPHILS PERCENT AUTO 0 % (0-2); EOSINOPHILS ABSOLUTE AUTO 0.08 K/mm3 (0.00-0.68); EOSINOPHILS PERCENT AUTO 1 % (0-6); Hematocrit 31.8 % (33.0-51.0); Hemoglobin 10.6 g/dL (11.5-16.0); IMMATURE GRAN ABSOLUTE AUTO 0.08 K/mm3 (0.00-0.10); IMMATURE GRAN PERCENT AUTO 1 % (0-1); LYMPHOCYTES ABSOLUTE AUTO 0.58 K/mm3 (0.84-5.20); LYMPHOCYTES PERCENT AUTO 4 % (21-46); MONOCYTES ABSOLUTE AUTO 0.51 K/mm3 (0.16-1.47); MONOCYTES PERCENT AUTO 4 % (4-13); Mean Corpuscular HGB 29.1 pg (26.0-34.0); Mean Corpuscular HGB Conc 33.3 g/dL (31.5-36.5); Mean Corpuscular Volume 87 fL (80-100); Mean Platelet Volume 8.9 fL (9.1-12.4); NEUTROPHILS ABSOLUTE AUTO 12.83 K/mm3 (1.96-9.15); NEUTROPHILS PERCENT AUTO 91 % (41-73); Platelet Count 497 K/mm3 (150-400); RDW Coefficient Variation 14.2 % (11.7-14.2); RDW Standard Deviation 45.8 fL (35.1-46.3); Red Blood Cell Count 3.64 M/mm3 (3.80-5.20); White Blood Cell Count 14.12 K/mm3 (4.00-11.30)
[2024-09-20 18:08] LABS: Albumin/Globulin Ratio 0.3 (0.8-1.8); Bilirubin, Total 0.9 mg/dL (0.1-1.0); Bun/Creatinine Ratio 15.2 (12.0-20.0); Calcium, Blood 9.4 mg/dL (8.5-10.1); Creatinine, Blood 1.12 mg/dL (0.40-1.00); Globulin, Blood 5.8 g/dL (2.2-4.0); Potassium, Blood 3.4 mmol/L (3.5-5.5); Total Protein, Blood 7.8 g/dL (6.4-8.2)
== END | disposition home or self-care (01) ==
LOC: LAB SHORT 17:53 → LAB 17:53
PROVIDERS: Physician Assistant
DX: R50.9 Fever, unspecified (principal)
CPT/HCPCS: 80053; 85025

== ENCOUNTER 2024-12-19 07:49 | Day surgery (SDC) | payer OTHER ==
[~2024-12-19 07:49] MED LIST changes: +ANORO ELLIPTA1 EAC1 INH; +ATOR20 PO; +Amphetamine Sal20 MG PO; +CEFAZOLIN2 GM/50 M3 IV; +DOCUZEN 8.6-501 EACH PO; +IBUP600 PO; +LIDO700A20 TOP; +LOSA25 PO; +METOPROLOL SUCC25 MG PO; +Methocarbamol750 MG PO; +PREG100 PO
== END 2024-12-19 23:00 | disposition home or self-care (01) ==
LOC: CT 07:49
DX: I25.10 Atherosclerotic heart disease of native coronary artery without angina pectoris (principal)
CPT/HCPCS: 75571